=== PATIENT | male | born 1935 | race Caucasian/White ===

== ENCOUNTER 2022-12-15 15:59 | Emergency (ER) | payer MEDICARE, SELFPAY ==
[2022-12-15] VITALS (14 sets, daily range): BP systolic 135–168; BP diastolic 75–126; PULSE 69–88; RESP 13–22; O2SAT 95–100
--- NOTE | ~2022-12-15 | CT_ITS ---
EXAMINATION: CT abd pelvis lumbar w con DATE: 12/15/2022 21:26 INDICATION: lower abd pain, R groin pain, L low back pain TECHNIQUE: Computed tomography (CT) of the abdomen and pelvis and lumbar spine was performed without intravenous contrast. Automated exposure control and iterative reconstruction technique were employed . The dose-length product was 2179.53 mGy-cm. COMPARISON: None. FINDINGS: Motion artifact present in the upper portions of the scan. Abdomen and pelvis: Lower thorax: Cardiomegaly. Pulmonary arterial dilation as can be seen with pulmonary arterial hypert ension. Coronary artery calcification and likely coronary stents. Senescent changes in the lungs. Con siderable motion artifact in the lung bases. Liver: Normal. Biliary/Gallbladder: Cholelithiasis. No bile duct dilation. Pancreas: Mild atrophy Spleen: Normal. Adrenals:No mass. Kidneys: Bilateral cortical atrophy. Multiple bilateral renal cysts. Bilateral pelviectasis. Mild uro thelial enhancement. GI tract: Distal esophageal and gastric wall edema. No small or large bowel dilation. Normal appendix . Mesentery/Peritoneum: No ascites, mass, or free air. Retroperitoneum: No mass. Heavy atherosclerotic calcifications. Aortic stent graft. Hyperdensities wi thin the thrombosed aneurysmal sac seen near the proximal portion of the graft, laterally, near the t akeoff of the iliac stents, and posteriorly adjacent to the lumbar arteries. Thrombosis of the left i liac limb with reconstitution at the left iliac bifurcation. Thrombosed right internal iliac artery. Patent femorofemoral graft. Pelvis: Partially filled urinary bladder with mild wall thickening. Prostatomegaly with calcification . Soft Tissues: Soft tissues and body wall unremarkable. Bones (excluding spine): No acute osseous finding. Lumbar Spine: Lumbar scoliosis. 5 nonrib-bearing lumbar-type vertebral bodies. Pedicles intact. Normal vertebral gloria dy alignment. Vertebral body heights preserved. Multilevel severe degenerative disc disease. Multilev el severe facet arthropathy. Multilevel severe bilateral neural foraminal narrowing. Severe central c anal narrowing at L3-4. No fracture. IMPRESSION: 1. 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 Consider vascular consultation. 2. Thrombosis of the left iliac stent, with distal reconstitution at the left iliac bifurcation. Righ t internal iliac thrombosis. 3. Bilateral renal pelviectasis with urothelial enhancement may represent ascending infection in the appropriate clinical context. 4. Esophagitis/gastritis. 5. No acute fracture or traumatic malalignment detected in the lumbar spine. Reviewed, dictated and finalized at location K. IMPRESSION: 1. 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 Consider vascul ar consultation. 2. Thrombosis of the left iliac stent, with distal reconstitution at the left i liac bifurcation. Right internal iliac thrombosis. 3. Bilateral renal pelviectasis with urothelial enhancement may represent ascen ding infection in the appropriate clinical context. 4. Esophagitis/gastritis. 5. No acute fracture or traumatic malalignment detected in the lumbar spine.
--- NOTE | ~2022-12-15 | CT_ITS ---
EXAMINATION: CT brain wo con DATE: 12/15/2022 21:10 INDICATION: fall yesterday, [place] . TECHNIQUE: Computed tomography (CT) of the head was performed without intravenous contrast. The mA wa s adjusted according to patient size. Iterative reconstruction technique was employed. The dose-lengt h product was 681.00 mGy-cm. COMPARISON: None. FINDINGS: No acute intracranial hemorrhage or extra-axial fluid collection. No hydrocephalus, mass, or herniation. No acute ischemic infarct. Unremarkable dural venous sinus attenuation. No acute osseous abnormality. The aerated spaces are clear. Moderate atrophy and chronic white matter change. Old left occipital infarct. Atherosclerotic intracr anial calcification. Bilateral lens replacements. IMPRESSION: No acute intracranial process. Reviewed, dictated and finalized at location K.
--- NOTE | ~2022-12-15 | CT_ITS ---
EXAMINATION: CT cervical spine wo con DATE: 12/15/2022 21:13 INDICATION: fall yesterday, [place] TECHNIQUE: Computed tomography (CT) of the cervical spine was performed without intravenous contrast. Automated exposure control and iterative reconstruction technique were employed. The dose-length pro duct was 469.16 mGy-cm. COMPARISON: None. FINDINGS: Vertebral Body Alignment: Intact. Reversed lordosis centered at C5-6. Craniocervical and atlantoaxial alignment: Moderate degenerative change. Alignment intact. Osseous structures/fracture: No evidence of a lytic or blastic process in the visualized spine. No e vidence of acute fracture. . Cervical soft tissues: The paraspinal soft tissues planes are maintained. Extensive atherosclerotic c alcifications. Biapical pleural scarring. Patulous esophagus. Degenerative changes: Multilevel disc calcifications. Multilevel degenerative disc disease and facet arthropathy. Multilevel moderate neural foraminal narrowing. No severe central canal narrowing. 4 mm central disc protrusion and left paracentral osteophyte complex contribute to moderate central canal narrowing at C5-6. IMPRESSION: No acute fracture or traumatic malalignment in the cervical spine. Reviewed, dictated and finalized at location K.
--- NOTE | 2022-12-15 20:18 | ECG_ITS ---
Measurements Intervals [place] Rate: 70 P: [place]: 0 QRS: -18 QRSD: 92 T: 14 QT: 407 QTc: 439 Interpretive Statements ATRIAL FIBRILLATION VENTRICULAR PREMATURE COMPLEX BASELINE ARTIFACT- II, III, AVR, AVF, V1 ABNORMAL ECG NO PREVIOUS ECG AVAILABLE FOR COMPARISON Electronically Signed On 12-16-2022 6:46:22 CDT by Jagdeep Sumner D.O.
[2022-12-15 20:44] LABS: Basophils Percent Auto 0.2 % (0.2-1.2); Eosinophils Absolute Auto 0.2 K/mm3 (0-0.3); Eosinophils Percent Auto 3.8 % (0-4.4); Hematocrit 38.8 % (42.0-52.0); Immature Granulocyte Absolute 0.02 K/mm3 (0.00-0.031); Immature Granulocyte Percent A 0.5 % (0-0.5); Immature Platelet Fraction Pct 4.5 % (0.9-11.2); Lymphocytes Absolute Auto 0.91 K/mm3 (0.9-3.2); Lymphocytes Percent Auto 21.6 % (18.3-44.2); Mean Corpuscular HGB Conc 33.5 g/dl (32-36); Mean Corpuscular Hemoglobin 32.7 pg (26-34); Mean Corpuscular Volume 97.7 fl (80-100); Mean Platelet Volume 10.5 fl (7.4-10.4); Monocytes Absolute Auto 0.4 K/mm3 (0.1-0.6); Monocytes Percent Auto 10.2 % (2.6-8.5); Neutrophils Absolute Auto 2.7 K/mm3 (1.3-6.7); Neutrophils Percent Auto 63.7 % (45.5-73.1); Platelet Count Result 133 k/mm3 (150-375); Red Blood Count 3.97 M/mm3 (4.6-6.20); Red Cell Distribution Width 14.1 % (11.5-14.5); White Blood Count 4.2 K/mm3 (4.5-10.0)
[2022-12-15 20:54] LABS: Alanine Aminotransferase 31 U/L (6-50); Albumin Level 3.6 g/dL (3.5-5.1); Alkaline Phosphatase 69 U/L (38-126); Anion Gap 6 mmol/L (8-16); Aspartate Amino Transferase 31 U/L (17-59); Blood Urea Nitrogen 27 mg/dL (9-20); Calcium 8.9 mg/dL (8.4-10.2); Carbon Dioxide 28 mmol/L (22-30); Chloride 104 mmol/L (98-107); Estimated Glomerular Filt Rate 57; Glucose 141 mg/dL (65-110); Potassium 4.5 mmol/L (3.4-5.0); Sodium 138 mmol/L (137-145)
[2022-12-15 21:05] LABS: Troponin I < 0.012 ng/mL (0.000-0.034)
--- NOTE | 2022-12-15 21:29 | ED.BACK ---
HPI - Back Pain/Injury General Chief Complaint: Back Pain/Injury <NATHAN Torres Last Filed: 12/16/22 04:26> Stated Complaint: fell 24 hrs ago. Back pain <NATHAN Torres Last Filed: 12/16/22 04:26> Time Seen by Provider: 12/15/22 18:36 <NATHAN Torres Last Filed: 12/16/22 04:26> Source: patient and family <NATHAN Torres Last Filed: 12/16/22 04:26> Mode of arrival: ambulatory <NATHAN Torres Last Filed: 12/16/22 04:26> Limitations: dementia <NATHAN Torres Last Filed: 12/16/22 04:26> History of Present Illness HPI Narrative: Patient is an 87-year-old male who presents to the ED with his daughter with report of a fall and low back pain. Patient has a history of dementia and resides at [facility]. History somewhat limited due to patient's dementia. Daughter reports patient had a witnessed fall yesterday morning in which he was walking with his walker and lost his balance, falling backwards onto his bottom. Nursing staff did not comment on a head injury, but patient does report he hit his head. He denied any LOC. He c/o pain to his left lower back, lower abdomen, and R groin. He denies any dizziness, lightheadedness, vision changes, nausea, vomiting, chest pain, difficulty breathing, numbness, saddle anesthesia, incontinence of bowel or bladder. <NATHAN Torres Last Filed: 12/16/22 04:26> Related Data Allergies/Adverse Reactions: Allergies Allergy/AdvReac Type Severity Reaction Status Date / Time No Known Allergies Allergy Verified 12/15/22 16:04 <NATHAN Torres Last Filed: 12/16/22 04:26> Review of Systems Review of Systems: CONSTITUTIONAL: Denies fever, chills, or sweats. EYES: Denies visual changes. CARDIOVASCULAR: Denies chest pain. RESPIRATORY: Denies dyspnea. GASTROINTESTINAL: See HPI. GENITOURINARY: Denies dysuria or hematuria. MUSCULOSKELETAL: See HPI. NEUROLOGIC: See HPI. <Joyce Sims PA-C - Last Filed: 12/16/22 04:26> All systems reviewed & are unremarkable except as noted in HPI and below <Joyce Sims PA-C - Last Filed: 12/16/22 04:26> PMFSH Past Medical History Medical History: Medical History (Updated 12/16/22 @ 00:02 by Joyce Sims PA-C) Atrial fibrillation Coronary artery disease Dementia Diabetes mellitus Hypercholesterolemia <Joyce Sims PA-C - Last Filed: 12/16/22 04:26> Surgical History Surgical History: Surgical History (Updated 12/15/22 @ 23:08 by Joyce Sims PA-C) History of aortic aneurysm repair S/P insertion of iliac artery stent <Joyce Sims PA-C - Last Filed: 12/16/22 04:26> Social History Social History: Social History (Updated 12/15/22 @ 23:08 by Joyce Sims PA-C) [facility] <Joyce Sims PA-C - Last Filed: 12/16/22 04:26> Exam Narrative: GENERAL: Elderly, well-nourished, non-toxic, in no acute distress. HEAD: Normocephalic, atraumatic. NECK: Supple. No adenopathy, no masses. No midline spinal tenderness. RESPIRATORY: Airway patent, respirations nonlabored. Clear to auscultation bilaterally, no rales, rhonchi, wheezing. CARDIOVASCULAR: Regular rate and rhythm without murmurs, rubs, or gallops. Peripheral pulses 2+ and equal bilaterally. ABDOMINAL: Soft, mild tenderness throughout lower abdomen, no focal tenderness. Nondistended, no hepatosplenomegaly. Normoactive BS. MUSCULOSKELETAL: Moves all extremities. Strength/ROM intact without gross deformities. No midline thoracic or lumbar spinal tenderness. No significant appreciable tenderness in lumbosacral region, but difficult exam d/t lack of patient cooperation/dementia. SKIN: Warm, dry, normal color. No rashes. Erythema, satellite lesions, skin irritation and breakdown to right inguinal region, consistent with Georgie. NEURO: Alert, confused,
[2022-12-15 22:54] LABS: INR 1.5; Prothrombin Time 17.2 Seconds (11.1-14.7)
[2022-12-15 22:55] LABS: Partial Thromboplastin Time 33.9 SECONDS (22.3-36.8)
[2022-12-15 23:08] LABS: Appearance Urine Clear (Clear); Bilirubin Urine Negative (Negative); Blood Urine Negative (Negative); Color Urine Yellow (Yellow); Glucose Urine UA Negative (Negative); Ketones Urine Negative (Negative); Leukocyte Esterase Ur Negative LEU/UL (Negative); Nitrate Urine Negative (Negative); Protein Urine Negative (Negative)
[2022-12-15 23:09] LABS: Specific Grav Ur 1.037 (1.001-1.035)
[2022-12-15 23:10] LABS: Add Urine Microscopic? NO
--- NOTE | 2022-12-16 00:16 | PC.NURSE ---
called [facility] to request transport. ETA [id number]
[2022-12-16 00:17] LABS: Glucose Point of Care 113 mg/dl (65-105)
--- NOTE | 2022-12-16 00:47 | PC.NURSE ---
[facility] here.
[2022-12-16 00:49] VITALS: BP 155/104
[2022-12-16 01:02] VITALS: PULSE 66; RESP 18; TEMP 36.7; O2SAT 97
== END 2022-12-16 01:05 ==
PROVIDERS: Emergency Provider Physician Assistant
DX: S39.012A Strain of muscle, fascia and tendon of lower back, initial encounter (principal); B37.2 Candidiasis of skin and nail; F03.90 Unspecified dementia, unspecified severity, without behavioral disturbance, psychotic disturbance, mood disturbance, and anxiety; T82.868A Thrombosis due to vascular prosthetic devices, implants and grafts, initial encounter; I82.521 Chronic embolism and thrombosis of right iliac vein; I48.91 Unspecified atrial fibrillation; I25.10 Atherosclerotic heart disease of native coronary artery without angina pectoris; E11.9 Type 2 diabetes mellitus without complications; E78.00 Pure hypercholesterolemia, unspecified; I49.3 Ventricular premature depolarization; K20.90 Esophagitis, unspecified without bleeding; K29.70 Gastritis, unspecified, without bleeding; R93.422 Abnormal radiologic findings on diagnostic imaging of left kidney; R93.421 Abnormal radiologic findings on diagnostic imaging of right kidney; W18.39XA Other fall on same level, initial encounter; Y71.2 Prosthetic and other implants, materials and accessory cardiovascular devices associated with adverse incidents
CPT/HCPCS: 36415; 70450; 72125; 72132; 74177; 80053; 81003; 82948; 84484; 85025; 85055; 85610; 85730; 93005; 99284; Q9967

== ENCOUNTER 2023-01-14 10:23 | Observation (INO) | payer MEDICARE, SELFPAY ==
[2023-01-14] VITALS (28 sets, daily range): BP systolic 122–178; BP diastolic 65–95; PULSE 60–95; RESP 13–26; TEMP 36.5–36.9; O2SAT 96–100
--- NOTE | ~2023-01-14 | XR_ITS ---
Portable chest x-ray Comparison: None Clinical History: Weakness Findings: Lungs are clear, without focal consolidation or pleural effusion. Cardiomediastinal silho uette is mildly prominent, status post CABG. Bones and soft tissues are unremarkable. Impression: Clear lungs. Status post CABG. Reviewed, dictated and finalized at location . Impression: Clear lungs. Status post CABG.
--- NOTE | ~2023-01-14 | CT_ITS ---
EXAMINATION: CT brain wo con DATE: 01/14/2023 15:11 INDICATION: Leg weakness. TECHNIQUE: Computed tomography (CT) of the head was performed without intravenous contrast. The dose- length product was 681.00 mGy-cm. Automated exposure control and iterative reconstruction technique w ere employed. COMPARISON: CT dated 12/15/2022 FINDINGS: Generalized atrophy. There is chronic left occipital lobe infarction with encephalomalacia. There is intracranial atherosclerosis. There is compensatory dilation of the ventricles. There are s cattered mild periventricular and subcortical white matter changes, most likely related to small vess el ischemic disease (microangiopathy). There is mucosal thickening of the maxillary, ethmoid and sphe noid sinuses. Mastoids are pneumatized. No depressed skull fractures. Small chronic left cerebellar i nfarction. IMPRESSION: 1. No acute intracranial abnormality. 2: Moderate sinus disease. 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 4: Chronic age-related findings. Reviewed, dictated and finalized at location A.
--- NOTE | 2023-01-14 10:28 | ECG_ITS ---
Measurements Intervals [place] Rate: 66 P: [place]: 0 QRS: -22 QRSD: 90 T: 18 QT: 397 QTc: 417 Interpretive Statements ATRIAL FIBRILLATION BORDERLINE LEFT AXIS DEVIATION [QRS AXIS < -20] ABNORMAL RHYTHM ECG COMPARED TO ECG 12/15/2022 21:32:04 NO SIGNIFICANT CHANGES Electronically Signed On 01-14-2023 15:55:55 CDT by Talat Tomlinson M.D.
[2023-01-14 10:53] LABS: Basophils Percent Auto 0.3 % (0.2-1.2); Eosinophils Absolute Auto 0.1 K/mm3 (0-0.3); Hematocrit 37.8 % (42.0-52.0); Hemoglobin 12.4 g/dL (14.0-18.0); Immature Granulocyte Absolute 0.01 K/mm3 (0.00-0.031); Immature Granulocyte Percent A 0.2 % (0-0.5); Immature Platelet Fraction Pct 4.9 % (0.9-11.2); Lymphocytes Absolute Auto 0.58 K/mm3 (0.9-3.2); Lymphocytes Percent Auto 9.7 % (18.3-44.2); Mean Corpuscular HGB Conc 32.8 g/dl (32-36); Mean Corpuscular Hemoglobin 32.8 pg (26-34); Mean Platelet Volume 10.4 fl (7.4-10.4); Monocytes Absolute Auto 0.6 K/mm3 (0.1-0.6); Monocytes Percent Auto 10.2 % (2.6-8.5); Neutrophils Absolute Auto 4.7 K/mm3 (1.3-6.7); Neutrophils Percent Auto 77.6 % (45.5-73.1); Platelet Count Result 142 k/mm3 (150-375); Red Blood Count 3.78 M/mm3 (4.6-6.20); Red Cell Distribution Width 13.9 % (11.5-14.5)
[2023-01-14 11:05] LABS: Alanine Aminotransferase 23 U/L (6-50); Albumin Level 3.4 g/dL (3.5-5.1); Alkaline Phosphatase 56 U/L (38-126); Anion Gap 3 mmol/L (8-16); Aspartate Amino Transferase 20 U/L (17-59); Bilirubin,Total 1.4 mg/dL (0.2-1.3); Blood Urea Nitrogen 23 mg/dL (9-20); Calcium 8.7 mg/dL (8.4-10.2); Carbon Dioxide 30 mmol/L (22-30); Chloride 105 mmol/L (98-107); Estimated CRCL calculation 42 ml/min; Estimated Glomerular Filt Rate > 60; Glucose 175 mg/dL (65-110); Potassium 3.8 mmol/L (3.4-5.0); Sodium 138 mmol/L (137-145)
[2023-01-14 11:26] LABS: Appearance Urine Clear (Clear); Bilirubin Urine Negative (Negative); Blood Urine Negative (Negative); Color Urine Dark Yellow (Yellow); Glucose Urine UA Negative (Negative); Ketones Urine Negative (Negative); Leukocyte Esterase Ur Negative LEU/UL (Negative); Nitrate Urine Negative (Negative); Protein Urine Negative (Negative); Specific Grav Ur 1.019 (1.001-1.035)
[2023-01-14 11:28] LABS: Add Urine Microscopic? NO
--- NOTE | 2023-01-14 12:13 | ED.WEAKNESS ---
HPI - Weakness General Chief complaint: Weakness Stated complaint: weakness Time Seen by Provider: 01/14/23 10:27 History of Present Illness HPI Narrative: Patient is an 87-year-old male who presents ER from his memory care for decreased ambulation. Patient typically walks with a walker but over the last 2 days has not been able to stand up and walk at all. He has difficulty with any sort of transitioning. Patient is oriented x1 and cannot provide history. Related Data Allergies Allergy/AdvReac Type Severity Reaction Status Date / Time No Known Allergies Allergy Verified 12/15/22 16:04 Review of Systems Review of Systems: ROS unobtainable: Yes unobtainable due to mental status PMFSH Past Medical History Medical History (Updated 01/14/23 @ 18:41 by Wu Drake MD) Atrial fibrillation Coronary artery disease Dementia Hypercholesterolemia Hypertension Insulin dependent diabetes mellitus Lumbar radiculopathy Spinal stenosis Surgical History Surgical History (Updated 01/14/23 @ 17:14 by Mona Reyes PA-C) History of aortic aneurysm repair Status post insertion of iliac artery stent Family History Family History (Updated 01/14/23 @ 17:15 by Mona Reyes PA-C) Other Family history unknown Social History Social History (Updated 01/14/23 @ 17:16 by Mona Reyes PA-C) Social History: 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 Code status: Do not resuscitate. Additional living arrangements comments: Assisted living at [facility]. Exam Narrative: GENERAL: Chronically ill-appearing, well-nourished, and in no acute distress. HEAD: Normocephalic, atraumatic. EYES: PERRL and EOMI. ENT: Mucous membranes moist. CHEST: Clear to auscultation. No respiratory distress. HEART: Regular rate and rhythm. Normal peripheral pulses. ABDOMEN: Soft, nontender, nondistended. EXTREMITIES: Normal range of motion. No edema. Unable to ambulate and has shaky legs when trying to stand. SKIN: Warm, dry, no rash. NEURO: Alert and oriented x1. PSYCH: Normal mood and affect. Course Course Emergency Course: Unremarkable lab work but patient cannot ambulate. May have suffered a stroke so will admit to hospital service. Vital Signs Vital signs: Vital Signs Temperature 98.4 F 01/14/23 10:17 Pulse Rate 94 01/14/23 10:17 Respiratory Rate 17 01/14/23 10:17 Blood Pressure 141/65 H 01/14/23 10:17 Pulse Oximetry 98 01/14/23 10:17 Temperature 98.4 F 01/14/23 10:17 Pulse Rate 63 01/14/23 12:45 Respiratory Rate 20 01/14/23 12:45 Blood Pressure 167/88 H 01/14/23 12:31 Pulse Oximetry 99 01/14/23 11:46 MDM - Weakness Lab Data 01/14/23 10:42 01/14/23 10:42 Labs: Lab Results 01/14/23 01/14/23 01/14/23 Range/Units 10:42 10:42 11:09 WBC 6.0 (4.5-10.0) K/mm3 RBC 3.78 L (4.6-6.20) M/mm3 Hgb 12.4 L (14.0-18.0) g/dL Hct 37.8 L (42.0-52.0) % MCV 100.0 (80-100) fl MCH 32.8 (26-34) pg MCHC 32.8 (32-36) g/dl RDW 13.9 (11.5-14.5) % Plt Count 142 L (150-375) k/mm3 MPV 10.4 (7.4-10.4) fl Immature Gran % (Auto) 0.2 (0-0.5) % Neut % (Auto) 77.6 H (45.5-73.1) % Lymph % (Auto) 9.7 L (18.3-44.2) % Hardin % (Auto) 10.2 H (2.6-8.5) % Eos % (Auto) 2.0 (0-4.4) % Baso % (Auto) 0.3 (0.2-1.2) % Lymph # (Auto) 0.58 L (0.9-3.2) K/mm3 Hardin # (Auto) 0.6 (0.1-0.6) K/mm3 Eos # (Auto) 0.1 (0-0.3) K/mm3 Baso # (Auto) 0.0 (0.0-0.1) K/mm3 Abs Immat Gran (auto) 0.01 (0.00-0.031) K/mm3 Absolute Neuts (auto) 4.7 (1.3-6.7) K/mm3 Absolute Nucleated RBC 0.0 (0.0-0.012) K/mm3 Nucleated RBC % 0.0 (0.0-0.2) % % Immature Plt Fraction 4.9 (0.9-11.2) % Sodium 138 (137-145) mmol/L Potassium 3.8 (3.4-5.0) mmol/L Chloride 105 (98-107) mmol/L Carbon Dioxide 30 (22-30) mmol/L Anion Gap 3 L (8-16) mmo
[2023-01-14 14:42] LABS: Strep Group A RT-PCR NOT DETECTED (Negative)
[2023-01-14 14:48] LABS: Influenza A QL RT-PCR Negative (Negative); Influenza B QL RT-PCR Negative (Negative); SARS-CoV-2 RNA PCR Negative
--- NOTE | 2023-01-14 18:00 | PM.IMHP ---
H&P: HPI History of Present Illness Date/Time: 01/14/23 18:00 Chief Complaint: Weakness. Narrative: This is an 87-year-old male with dementia, insulin-dependent diabetes, hypertension, coronary artery disease, paroxysmal atrial fibrillation, and other comorbidities who presented to the emergency department via EMS from [facility] for evaluation of weakness. The patient is an unreliable historian and thus the following history is obtained via a review of his electronic medical records as well as discussions with his son Darrion who is at bedside. The patient has his own apartment at the assisted living facility and he typically gets around well with a Rollator. He is able to get himself down to the dining room and seems to do well. Over the last several days however he has had sinus and chest congestion and has been more fatigued and weak than usual. Staff at the assisted living facility sent him in today as he is requiring more care than what they can provide. The patient self has no complaints but he has pretty significant short-term memory loss. He was afebrile on arrival to the emergency department with stable vital signs. Pertinent labs include a WBC count of 6.0, hemoglobin 12.4 which is stable, normal electrolytes, BUN 23, creatinine 1.00, glucose 175. He tested negative for influenza, COVID, and group B strep. Brain CT showed no acute intracranial finding and moderate sinus disease. His chest x-ray was clear. He was unable to ambulate well in the emergency department even with a 2 person assist and he is being admitted in this setting. At the time my evaluation he has no complaints. Review of Systems Review of Systems: Unable to obtain given his severe short-term memory loss. [facility] Past Medical History Medical History Atrial fibrillation Coronary artery disease Dementia Hypercholesterolemia Hypertension Insulin dependent diabetes mellitus Lumbar radiculopathy Spinal stenosis Surgical History Surgical History (Updated 01/14/23 @ 17:14 by Mona Reyes PA-C) History of aortic aneurysm repair Status post insertion of iliac artery stent Family History Family History (Updated 01/14/23 @ 17:15 by Mona Reyes PA-C) Other Family history unknown Social History Social History (Updated 01/14/23 @ 22:07 by Mona Reyes PA-C) Social History: Healthcare power of nanotechnology 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 Code status: Do not resuscitate. Smoking status: Never smoker Alcohol intake: never Substance use: never Additional living arrangements comments: Assisted living at [facility]. 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 Meds Home Medications and Allergies Home Medications Medication Instructions Recorded Confirmed Type clotrimazole 1 % topical cream 1 applic topical BID #30 grams 12/16/22 01/14/23 Rx aspirin 81 mg tablet,delayed 81 mg PO DAILY 01/14/23 01/14/23 History release atorvastatin 20 mg tablet 20 mg PO DAILY 01/14/23 01/14/23 History cholecalciferol (vitamin D3) 50 50 mcg PO DAILY 01/14/23 01/14/23 History mcg (2,000 unit) tablet clopidogrel 75 mg tablet 75 mg PO DAILY 01/14/23 01/14/23 History donepezil 10 mg tablet 10 mg PO HS 01/14/23 01/14/23 History fenofibrate nanocrystallized 145 145 mg PO DAILY 01/14/23 01/14/23 History mg tablet finasteride 5 mg tablet 5 mg PO DAILY 01/14/23 01/14/23 History guaifenesin 600 mg tablet, 600 mg PO BID 01/14/23 01/14/23 History extended release 12 hr (Mucus Relief ER) insulin aspart U-100 100 unit/mL 3 unit subcut TIDWMEAL 01/14/23 01/14/23 History (3 mL) subcutaneous pen (Novolog FlexPen U-100 Insulin aspart) insulin glargine 100 unit/mL (3 5 unit subcut DAILY 01/14/23 01/14/23 History mL) subcutaneous pen (Basaglar KwikPen U-100 Insulin) lisinopril 5 mg tablet 5 mg PO DAILY 01/14/23 01/14/23 History memantine 1
--- NOTE | 2023-01-14 18:56 | PC.NURSE ---
This patient, Nguyễn Lamb, was admitted to 2 Medical Room 242-. Patient/family oriented to hospital policies and general routines including ID bracelet, bed and alarms, visiting hours, pain management, procedures, bathroom and other care routines, personal items, smoking policy, room service/diet, and visiting hours. Information on how to activate the Rapid Response Team has been discussed. Patient/Family are encouraged to report perceived risks to care and to ask questions if they do not understand what they are told or what they should do.
[2023-01-14 23:27] LABS: Hemoglobin A1C 6.3 % (<5.7)
[2023-01-15] MEDS: LACTATED RINGERS 1,000 ML 100 ML IV CONT (00:30)
[2023-01-15 05:42] LABS: Hematocrit 36.5 % (42.0-52.0); Hemoglobin 12.3 g/dL (14.0-18.0); Immature Platelet Fraction Pct 4.9 % (0.9-11.2); Mean Corpuscular HGB Conc 33.7 g/dl (32-36); Mean Corpuscular Hemoglobin 33.2 pg (26-34); Mean Corpuscular Volume 98.4 fl (80-100); Mean Platelet Volume 10.3 fl (7.4-10.4); Platelet Count Result 137 k/mm3 (150-375); Red Blood Count 3.71 M/mm3 (4.6-6.20); Red Cell Distribution Width 13.6 % (11.5-14.5)
[2023-01-15 05:54] LABS: Anion Gap 4 mmol/L (8-16); Blood Urea Nitrogen 21 mg/dL (9-20); Calcium 8.4 mg/dL (8.4-10.2); Carbon Dioxide 28 mmol/L (22-30); Chloride 105 mmol/L (98-107); Estimated CRCL calculation 52 ml/min; Estimated Glomerular Filt Rate > 60; Glucose 97 mg/dL (65-110); Magnesium 1.5 mg/dL (1.6-2.3); Potassium 4.1 mmol/L (3.4-5.0); Sodium 137 mmol/L (137-145)
[2023-01-15 06:00] VITALS: BP 109/74; PULSE 73; RESP 20; TEMP 36.3; O2SAT 98
[2023-01-15 06:31] LABS: Thyroid Stimulating Hormone Reflex 0.378 uIU/mL (0.465-4.68)
[2023-01-15 07:25] LABS: Free T4 Free Thyroxine Reflex 2.11 ng/dL (0.78-2.19)
--- NOTE | 2023-01-15 08:40 | PM.IMPN ---
Progress Note: A&P Assessment and Plan (1) Upper respiratory infection: Code(s): J06.9 - Acute upper respiratory infection, unspecified Status: Acute Assessment and Plan: Negative for influenza, COVID, and strep group A strep, chest x-ray was clear, likely has a viral URI CT shows sinus disease and he is tender to palpation over the maxillary sinuses She started on Augmentin 01/14, continue Mucinex (2) Sinusitis: Code(s): J32.9 - Chronic sinusitis, unspecified Status: Acute Assessment and Plan: Augmentin as above (3) Generalized weakness: Code(s): R53.1 - Weakness Status: Acute Assessment and Plan: Unsure of etiology, PT/OT consult pending Check TSH/B12/folate/Vitamin D (4) Insulin dependent diabetes mellitus: Status: Acute Assessment and Plan: Continue basal insulin. Initiate sliding scale insulin, Accu-Cheks, and hypoglycemic protocol. A1c 6.3 Blood glucose reviewed 01/15 (5) Atrial fibrillation: Code(s): I48.91 - Unspecified atrial fibrillation Status: Acute Assessment and Plan: He is rate controlled on metoprolol. Not on chronic anticoagulation, likely due to fall risk. (6) Dementia: Qualifiers: Dementia behavioral or psychological symptom: unspecified whether behavioral, psychotic, or mood disturbance or anxiety Dementia severity: unspecified severity Dementia type: unspecified type Qualified Code(s): F03.90 - Unspecified dementia, unspecified severity, without behavioral disturbance, psychotic disturbance, mood disturbance, and anxiety Code(s): F03.90 - Unspecified dementia, unspecified severity, without behavioral disturbance, psychotic disturbance, mood disturbance, and anxiety Status: Acute Assessment and Plan: Continue donepezil and memantine. (7) Hypertension: Code(s): I10 - Essential (primary) hypertension Status: Acute Assessment and Plan: Blood pressures reviewed 01/15 Plan DVT prophylaxis with SCDs GI prophylaxis not indicated Code status DNR Subjective Date/time seen: 01/15/23 08:40 Interval history: 79-year-old male with dementia, diabetes, heart disease and AFib presenting from a nursing facility with weakness. No overnight events noted. No chest pain or shortness of breath. No nausea, vomiting or diarrhea. No fevers or chills. Review of Systems Review of Systems: 12 point review of systems was assessed and was negative except as noted in the HPI Exam Narrative: General: No acute distress, alert and oriented per baseline per chart HEENT: Atraumatic, normocephalic, mucous membranes moist CV: Irregularly irregular, S1, S2 Lungs: Clear to auscultation bilaterally, no rales or crackles noted, no wheezes, good air entry Abdomen: Soft, nontender, nondistended Extremities: Normal to inspection Skin: No rashes noted, no lesions or wounds seen Psych: Unable to assess, confused Objective Data Vital Signs Vital Signs: Vital Signs - 24 hr 01/14/23 10:17 01/14/23 10:27 01/14/23 10:28 Temperature 98.4 F Pulse Rate 94 Respiratory Rate 17 13 20 Blood Pressure 141/65 H 141/65 H Pulse Oximetry 98 98 Oxygen Delivery 01/14/23 10:30 01/14/23 10:34 01/14/23 10:35 Temperature Pulse Rate 67 Respiratory Rate 19 16 20 Blood Pressure 133/68 Pulse Oximetry 97 100 100 Oxygen Delivery 01/14/23 10:45 01/14/23 10:46 01/14/23 11:00 Temperature Pulse Rate 73 77 65 Respiratory Rate 18 18 16 Blood Pressure 127/76 Pulse Oximetry 98 96 100 Oxygen Delivery 01/14/23 11:01 01/14/23 11:15 01/14/23 11:17 Temperature Pulse Rate 68 60 65 Respiratory Rate 21 H 15 26 H Blood Pressure 145/74 H 134/81 Pulse Oximetry 99 99 Oxygen Delivery 01/14/23 11:30 01/14/23 11:31 01/14/23 11:32 Temperature Pulse Rate 63 62 61 Respiratory Rate 16 15 17 Blood Pressure 1
--- NOTE | 2023-01-15 08:42 | PC.NURSE ---
Patient will not keep nurse monitoring on, patient pulled out IV access, patient constantly setting off bed alarm attempting to get up without help.
[2023-01-15 08:44] LABS: Glucose Point of Care 85 mg/dl (65-105)
[2023-01-15 08:50] LABS: Total Triiodothyronine (T3) 0.99 NG/ML (0.97-1.69)
[2023-01-15 11:26] VITALS: BMI 25.4
--- NOTE | 2023-01-15 11:30 | PCPTNOTE ---
Attempted to evaluate patient, is asleep and does not want to be woken up. Will try again when he is more awake.
--- NOTE | 2023-01-15 11:33 | PC.NURSE ---
RN tried to give patient medications this morning. Patient was drowsy and fell asleep. Therapy attempted to work with patient and patient told him to leave him alone. Patient fell back asleep. Patient not following commands or waking up enough to take medications.
[2023-01-15 12:25] LABS: Glucose Point of Care 90 mg/dl (65-105)
[2023-01-15 14:30] VITALS: BP 149/66; PULSE 110; RESP 18; TEMP 36.8; O2SAT 98
[2023-01-15 17:08] LABS: Vitamin D 25 Hydroxy 49.3 ng/mL
[2023-01-15] MEDS: MEMANTINE 10 MG TABLET PO (17:45)
[2023-01-15 17:52] LABS: Thyroid Stimulating Hormone 0.363 uIU/mL (0.465-4.680)
--- NOTE | 2023-01-15 17:58 | PC.NURSE ---
Patient more alert and awake for dinner. Able to follow commands. Able to swallow evening medications.
[2023-01-15 18:00] LABS: Glucose Point of Care 92 mg/dl (65-105)
[2023-01-15 20:05] VITALS: BP 172/54; PULSE 61; RESP 18; TEMP 35.8; O2SAT 99
[2023-01-15 21:08] VITALS: PULSE 61
[2023-01-15] MEDS: guaiFENesin 12 HR 600 MG TABCR PO (21:08)
[2023-01-15] MEDS: AMOXICILLIN/CLAVULANATE K 875-125 MG TAB 1 TABLET PO (21:08)
[2023-01-15] MEDS: DONEPEZIL HCL 10 MG TABLET PO (21:08)
[2023-01-15] MEDS: MICONAZOLE NITRATE 2% CREAM 30 GM TUBE 1 APPLIC TOPICAL (21:08)
[2023-01-15] MEDS: TAMSULOSIN HCL 0.4 MG CAPSULE PO (21:08)
[2023-01-15] MEDS: METOPROLOL TARTRATE 25 MG TABLET PO (21:08)
[2023-01-15] MEDS: MONTELUKAST SODIUM 10 MG TABLET PO (21:09)
[2023-01-16] VITALS (7 sets, daily range): BP systolic 100–152; BP diastolic 54–79; PULSE 73–89; RESP 17–20; TEMP 36.3–36.7; O2SAT 98–99
[2023-01-16 06:25] LABS: Basophils Percent Auto 0.2 % (0.2-1.2); Eosinophils Absolute Auto 0.1 K/mm3 (0-0.3); Hematocrit 35.4 % (42.0-52.0); Hemoglobin 11.9 g/dL (14.0-18.0); Immature Granulocyte Absolute 0.02 K/mm3 (0.00-0.031); Immature Granulocyte Percent A 0.3 % (0-0.5); Lymphocytes Absolute Auto 0.78 K/mm3 (0.9-3.2); Lymphocytes Percent Auto 13.2 % (18.3-44.2); Mean Corpuscular HGB Conc 33.6 g/dl (32-36); Mean Corpuscular Hemoglobin 31.8 pg (26-34); Mean Corpuscular Volume 94.7 fl (80-100); Mean Platelet Volume 10.2 fl (7.4-10.4); Monocytes Absolute Auto 0.8 K/mm3 (0.1-0.6); Monocytes Percent Auto 13.1 % (2.6-8.5); Neutrophils Absolute Auto 4.2 K/mm3 (1.3-6.7); Neutrophils Percent Auto 71.2 % (45.5-73.1); Platelet Count Result 130 k/mm3 (150-375); Red Blood Count 3.74 M/mm3 (4.6-6.20); Red Cell Distribution Width 13.2 % (11.5-14.5); White Blood Count 5.9 K/mm3 (4.5-10.0)
[2023-01-16 06:46] LABS: Alanine Aminotransferase 19 U/L (6-50); Albumin Level 3.2 g/dL (3.5-5.1); Alkaline Phosphatase 43 U/L (38-126); Anion Gap 5 mmol/L (8-16); Aspartate Amino Transferase 20 U/L (17-59); Bilirubin,Total 1.8 mg/dL (0.2-1.3); Blood Urea Nitrogen 19 mg/dL (9-20); Calcium 8.5 mg/dL (8.4-10.2); Carbon Dioxide 30 mmol/L (22-30); Chloride 102 mmol/L (98-107); Estimated CRCL calculation 52 ml/min; Estimated Glomerular Filt Rate > 60; Glucose 145 mg/dL (65-110); Potassium 3.9 mmol/L (3.4-5.0); Sodium 137 mmol/L (137-145)
[2023-01-16 08:21] LABS: Glucose Point of Care 136 mg/dl (65-105)
[2023-01-16] MEDS: AMOXICILLIN/CLAVULANATE K 875-125 MG TAB 1 TABLET PO ×2 (10:00→20:46)
[2023-01-16] MEDS: TOLTERODINE TARTRATE LA 4 MG CAP.ER.24H PO (10:00)
[2023-01-16] MEDS: guaiFENesin 12 HR 600 MG TABCR PO ×2 (10:00→20:46)
[2023-01-16] MEDS: MEMANTINE 10 MG TABLET PO (10:00)
[2023-01-16] MEDS: FINASTERIDE 5 MG TABLET PO (10:00)
[2023-01-16] MEDS: FENOFIBRATE NANOCRYSTALLIZED 145 MG TABLET PO (10:00)
[2023-01-16] MEDS: CLOPIDOGREL BISULFATE 75 MG TABLET PO (10:00)
[2023-01-16] MEDS: ATORVASTATIN 20 MG TABLET PO (10:00)
[2023-01-16] MEDS: ASPIRIN 81 MG ENTERIC TABLET PO (10:00)
[2023-01-16] MEDS: CYANOCOBALAMIN 1,000 MCG TABLET 1000 MCG PO (10:00)
[2023-01-16] MEDS: CHOLECALCIFEROL 1,000 UNITS TABLET 2000 UNITS PO (10:00)
[2023-01-16 12:06] LABS: Glucose Point of Care 308 mg/dl (65-105)
[2023-01-16] MEDS: INSULIN ASPART (*BKC) 100 UNITS/ML SUB-Q ×2 (12:12→12:13)
[2023-01-16] MEDS: MICONAZOLE NITRATE 2% CREAM 30 GM TUBE 1 APPLIC TOPICAL ×2 (12:17→20:46)
[2023-01-16 17:06] LABS: Glucose Point of Care 203 mg/dl (65-105)
--- NOTE | 2023-01-16 17:12 | PM.IMPN ---
Progress Note: A&P Assessment and Plan (1) Upper respiratory infection: Code(s): J06.9 - Acute upper respiratory infection, unspecified Status: Acute Assessment and Plan: Negative for influenza, COVID, and strep group A strep. CXR was clear Likely has a viral URI CT shows sinus disease and he was tender to palpation over the maxillary sinuses Started on Augmentin 01/14, continue Mucinex (2) Sinusitis: Code(s): J32.9 - Chronic sinusitis, unspecified Status: Acute Assessment and Plan: CT scan showing moderate sinus disease. Augmentin as above (3) Generalized weakness: Code(s): R53.1 - Weakness Status: Acute Assessment and Plan: Unsure of etiology. 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 TSH low at 0.38 but FT4 normal. B12 low end of normal at 254 so will replace. VitD okay. PT/OT consult. Replace B12. (4) Insulin dependent diabetes mellitus: Status: Acute Assessment and Plan: A1c 6.3. The patient's blood glucose was reviewed on 01/16 Glucose flutuates widely. Continue AccuCheks covering with sliding scale. Hypoglycemia protocol available as needed. Continue current medications. (5) Atrial fibrillation: Code(s): I48.91 - Unspecified atrial fibrillation Status: Acute Assessment and Plan: Heart rate controlled on metoprolol. Not on chronic anticoagulation, likely due to fall risk. (6) Dementia: Qualifiers: Dementia behavioral or psychological symptom: unspecified whether behavioral, psychotic, or mood disturbance or anxiety Dementia severity: unspecified severity Dementia type: unspecified type Qualified Code(s): F03.90 - Unspecified dementia, unspecified severity, without behavioral disturbance, psychotic disturbance, mood disturbance, and anxiety Code(s): F03.90 - Unspecified dementia, unspecified severity, without behavioral disturbance, psychotic disturbance, mood disturbance, and anxiety Status: Acute Assessment and Plan: Possibly vascular component. Continue donepezil and memantine. (7) Hypertension: Code(s): I10 - Essential (primary) hypertension Status: Acute Assessment and Plan: Patient's blood pressure was reviewed on 01/16 Blood pressure better controlled. Will continue current medications. Plan DVT prophylaxis with SCDs GI prophylaxis not indicated Code status DNR Subjective Date/time seen: 01/16/23 17:12 Interval history: 79-year-old male with dementia, diabetes, heart disease and AFib presenting from a nursing facility with weakness. Asleep but arouses easily. Mumbled speech at times. Becomes alert but confused. Review of Systems Review of Systems: ROS unobtainable: Yes unobtainable due to mental status Exam Narrative: AF 97.6 126/73 73 18 98% ra General: No acute distress HEENT: Atraumatic, normocephalic, mucous membranes moist CV: Irregularly irregular, S1, S2 Lungs: Clear to auscultation anteriorly Abdomen: Soft, nontender, nondistended Extremities: Normal to inspection and without edema Skin: No rashes noted, no lesions or wounds seen Psych: alert, confused Objective Data Vital Signs Vital Signs: Vital Signs - 24 hr 01/15/23 20:05 01/15/23 21:08 01/15/23 20:00 Temperature 96.5 F L Pulse Rate 61 61 Respiratory Rate 18 Blood Pressure 172/54 H Pulse Oximetry 99 Oxygen Delivery Room Air 01/16/23 03:53 01/16/23 09:07 01/16/23 10:06 Temperature 97.3 F L Pulse Rate 76 Respiratory Rate 18 Blood Pressure 152/76 H 100/54 L Pulse Oximetry 98 Oxygen Delivery Room Air 01/16/23 10:00 01/16/23 14:20 01/16/23 14:30 Temperature 97.6 F Pulse Rate 73 Respiratory Rate 18 Blood Pressure 126/73 Pulse Oximetry 98 98 Oxygen Delivery Room Air Room Air Intake/Output Intake/Output: Intake & Output 01/13/23 01/14/23 01/15/23
[2023-01-16 20:24] LABS: Glucose Point of Care 296 mg/dl (65-105)
[2023-01-16] MEDS: METOPROLOL TARTRATE 25 MG TABLET PO (20:46)
[2023-01-16] MEDS: TAMSULOSIN HCL 0.4 MG CAPSULE PO (20:46)
[2023-01-16] MEDS: MONTELUKAST SODIUM 10 MG TABLET PO (20:46)
[2023-01-16] MEDS: DONEPEZIL HCL 10 MG TABLET PO (20:46)
[2023-01-16 21:09] LABS: Glucose Point of Care 255 mg/dl (65-105)
[2023-01-17 04:00] VITALS: BP 108/70; PULSE 87; TEMP 36.6; O2SAT 97
[2023-01-17 05:31] LABS: Basophils Percent Auto 0.4 % (0.2-1.2); Eosinophils Absolute Auto 0.2 K/mm3 (0-0.3); Eosinophils Percent Auto 2.8 % (0-4.4); Hematocrit 36.9 % (42.0-52.0); Hemoglobin 12.8 g/dL (14.0-18.0); Immature Granulocyte Absolute 0.02 K/mm3 (0.00-0.031); Immature Granulocyte Percent A 0.4 % (0-0.5); Lymphocytes Absolute Auto 0.81 K/mm3 (0.9-3.2); Lymphocytes Percent Auto 15.2 % (18.3-44.2); Mean Corpuscular HGB Conc 34.7 g/dl (32-36); Mean Corpuscular Hemoglobin 32.5 pg (26-34); Mean Corpuscular Volume 93.7 fl (80-100); Monocytes Absolute Auto 0.7 K/mm3 (0.1-0.6); Monocytes Percent Auto 12.6 % (2.6-8.5); Neutrophils Absolute Auto 3.7 K/mm3 (1.3-6.7); Neutrophils Percent Auto 68.6 % (45.5-73.1); Platelet Count Result 142 k/mm3 (150-375); Red Blood Count 3.94 M/mm3 (4.6-6.20); Red Cell Distribution Width 13.2 % (11.5-14.5); White Blood Count 5.3 K/mm3 (4.5-10.0)
[2023-01-17 05:43] LABS: Alanine Aminotransferase 19 U/L (6-50); Albumin Level 3.1 g/dL (3.5-5.1); Alkaline Phosphatase 66 U/L (38-126); Anion Gap 2 mmol/L (8-16); Aspartate Amino Transferase 18 U/L (17-59); Bilirubin,Total 1.5 mg/dL (0.2-1.3); Blood Urea Nitrogen 22 mg/dL (9-20); Calcium 8.4 mg/dL (8.4-10.2); Carbon Dioxide 30 mmol/L (22-30); Chloride 103 mmol/L (98-107); Estimated CRCL calculation 52 ml/min; Estimated Glomerular Filt Rate > 60; Glucose 202 mg/dL (65-110); Sodium 135 mmol/L (137-145)
--- NOTE | 2023-01-17 07:49 | PM.IMPN ---
Progress Note: A&P Assessment and Plan (1) Upper respiratory infection: Code(s): J06.9 - Acute upper respiratory infection, unspecified Status: Acute Assessment and Plan: Negative for influenza, COVID, and strep group A strep. CXR was clear Likely has a viral URI CT shows sinus disease and he was tender to palpation over the maxillary sinuses Started on Augmentin 01/14, continue Mucinex (2) Sinusitis: Code(s): J32.9 - Chronic sinusitis, unspecified Status: Acute Assessment and Plan: CT scan showing moderate sinus disease. Augmentin as above (3) Generalized weakness: Code(s): R53.1 - Weakness Status: Acute Assessment and Plan: Unsure of etiology. 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 TSH low at 0.38 but FT4 normal. B12 low end of normal at 254. VitD okay. PT/OT consult. Continue B12 replacement. (4) Insulin dependent diabetes mellitus: Status: Acute Assessment and Plan: A1c 6.3. The patient's blood glucose was reviewed on 01/17 Glucose was fluctuating but now persistently high. A1c suggests that his home medications should be controlling his glucose Continue AccuCheks covering with sliding scale. Hypoglycemia protocol available as needed. Resume metformin. Advance lantus (5) Atrial fibrillation: Code(s): I48.91 - Unspecified atrial fibrillation Status: Acute Assessment and Plan: Heart rate controlled on metoprolol. Not on chronic anticoagulation, likely due to fall risk. (6) Dementia: Qualifiers: Dementia behavioral or psychological symptom: unspecified whether behavioral, psychotic, or mood disturbance or anxiety Dementia severity: unspecified severity Dementia type: unspecified type Qualified Code(s): F03.90 - Unspecified dementia, unspecified severity, without behavioral disturbance, psychotic disturbance, mood disturbance, and anxiety Code(s): F03.90 - Unspecified dementia, unspecified severity, without behavioral disturbance, psychotic disturbance, mood disturbance, and anxiety Status: Acute Assessment and Plan: Possibly vascular component. Continue donepezil and memantine. (7) Hypertension: Code(s): I10 - Essential (primary) hypertension Status: Acute Assessment and Plan: Patient's blood pressure was reviewed on 01/17 Blood pressure better controlled. Will continue current medications. Plan DVT prophylaxis with SCDs Code status DNR Subjective Date/time seen: 01/17/23 07:49 Interval history: 79-year-old male with dementia, diabetes, heart disease and AFib presenting from a nursing facility with weakness. Alert but confused. He states 'I feel fine'. Hx unreliable Review of Systems Review of Systems: ROS unobtainable: Yes unobtainable due to mental status Exam Narrative: AF 97.9 108/70 87 17 97% ra General: NARD HEENT: Atraumatic, normocephalic, mucous membranes moist CV: Irregularly irregular, S1, S2 Lungs: Clear to auscultation anteriorly Abdomen: Soft, nontender, nondistended Extremities: No pedal edema Skin: warm and dry Psych: alert, confused Objective Data Vital Signs Vital Signs: Vital Signs - 24 hr 01/16/23 09:07 01/16/23 10:06 01/16/23 10:00 Temperature Pulse Rate Respiratory Rate Blood Pressure 100/54 L Pulse Oximetry Oxygen Delivery Room Air Room Air 01/16/23 14:20 01/16/23 14:30 01/16/23 19:28 Temperature 97.6 F 98.1 F Pulse Rate 73 89 Respiratory Rate 18 20 Blood Pressure 126/73 142/72 H Pulse Oximetry 98 98 99 Oxygen Delivery Room Air 01/16/23 22:00 01/16/23 20:00 01/16/23 20:00 Temperature 97.8 F 97.8 F Pulse Rate 76 76 76 Respiratory Rate 17 17 17 Blood Pressure 148/79 H 138/78 Pulse Oximetry 99 99 99 Oxygen Delivery Room Air 01/17/23 04:00 Temperature 97.9 F Pulse Rate 87 Respiratory Rate Blood Pressure 108/70
[2023-01-17 08:00] LABS: Glucose Point of Care 173 mg/dl (65-105)
[2023-01-17] MEDS: CHOLECALCIFEROL 1,000 UNITS TABLET 2000 UNITS PO (09:00)
[2023-01-17] MEDS: metFORMIN HCL XR 500 MG TAB.SR.24H PO (09:02)
[2023-01-17] MEDS: FENOFIBRATE NANOCRYSTALLIZED 145 MG TABLET PO (09:02)
[2023-01-17] MEDS: MEMANTINE 10 MG TABLET PO ×2 (09:02→17:40)
[2023-01-17] MEDS: INSULIN GLARGINE (*BKC) 100 UNITS/ML 8 UNITS SUB-Q (09:04)
[2023-01-17] MEDS: INSULIN ASPART (*BKC) 100 UNITS/ML SUB-Q ×3 (09:04→17:40)
[2023-01-17] MEDS: guaiFENesin 12 HR 600 MG TABCR PO ×2 (09:05→20:18)
[2023-01-17] MEDS: ASPIRIN 81 MG ENTERIC TABLET PO (09:05)
[2023-01-17] MEDS: CYANOCOBALAMIN 1,000 MCG TABLET 1000 MCG PO (09:05)
[2023-01-17] MEDS: TOLTERODINE TARTRATE LA 4 MG CAP.ER.24H PO (09:05)
[2023-01-17 09:06] VITALS: PULSE 73
[2023-01-17] MEDS: CLOPIDOGREL BISULFATE 75 MG TABLET PO (09:06)
[2023-01-17] MEDS: FINASTERIDE 5 MG TABLET PO (09:06)
[2023-01-17] MEDS: ATORVASTATIN 20 MG TABLET PO (09:06)
[2023-01-17] MEDS: lisinopriL 5 MG TABLET PO (09:06)
[2023-01-17] MEDS: AMOXICILLIN/CLAVULANATE K 875-125 MG TAB 1 TABLET PO ×2 (09:06→20:18)
[2023-01-17] MEDS: METOPROLOL TARTRATE 25 MG TABLET PO ×2 (09:06→20:20)
[2023-01-17 11:59] LABS: Glucose Point of Care 183 mg/dl (65-105)
[2023-01-17] MEDS: MICONAZOLE NITRATE 2% CREAM 30 GM TUBE 1 APPLIC TOPICAL ×2 (12:18→20:20)
[2023-01-17 14:00] VITALS: BP 109/47; PULSE 56; RESP 16; TEMP 36.2; O2SAT 98
[2023-01-17 16:50] LABS: Glucose Point of Care 116 mg/dl (65-105)
[2023-01-17 20:00] VITALS: BP 121/81; PULSE 86; RESP 18; O2SAT 100
[2023-01-17] MEDS: DONEPEZIL HCL 10 MG TABLET PO (20:19)
[2023-01-17] MEDS: TAMSULOSIN HCL 0.4 MG CAPSULE PO (20:19)
[2023-01-17] MEDS: MONTELUKAST SODIUM 10 MG TABLET PO (20:19)
[2023-01-17 20:26] LABS: Glucose Point of Care 148 mg/dl (65-105)
[2023-01-17 21:06] VITALS: BP 121/81; PULSE 86; RESP 18; TEMP 36.6; O2SAT 100
[2023-01-17] MEDS: risperiDONE 0.5 MG TABLET PO (23:15)
[2023-01-18] VITALS (10 sets, daily range): BP systolic 93–127; BP diastolic 51–70; PULSE 61–78; RESP 14–20; TEMP 35.7–36.2; O2SAT 95–99
[2023-01-18 05:29] LABS: Basophils Percent Auto 0.4 % (0.2-1.2); Eosinophils Absolute Auto 0.3 K/mm3 (0-0.3); Eosinophils Percent Auto 5.6 % (0-4.4); Hematocrit 36.8 % (42.0-52.0); Hemoglobin 12.3 g/dL (14.0-18.0); Immature Granulocyte Absolute 0.02 K/mm3 (0.00-0.031); Immature Granulocyte Percent A 0.4 % (0-0.5); Lymphocytes Percent Auto 23.8 % (18.3-44.2); Mean Corpuscular HGB Conc 33.4 g/dl (32-36); Mean Corpuscular Hemoglobin 32.3 pg (26-34); Mean Corpuscular Volume 96.6 fl (80-100); Mean Platelet Volume 10.5 fl (7.4-10.4); Monocytes Absolute Auto 0.5 K/mm3 (0.1-0.6); Neutrophils Absolute Auto 2.7 K/mm3 (1.3-6.7); Neutrophils Percent Auto 58.8 % (45.5-73.1); Platelet Count Result 149 k/mm3 (150-375); Red Blood Count 3.81 M/mm3 (4.6-6.20); Red Cell Distribution Width 13.2 % (11.5-14.5); White Blood Count 4.6 K/mm3 (4.5-10.0)
[2023-01-18 05:43] LABS: Alanine Aminotransferase 19 U/L (6-50); Alkaline Phosphatase 70 U/L (38-126); Anion Gap 5 mmol/L (8-16); Aspartate Amino Transferase 18 U/L (17-59); Bilirubin,Total 1.1 mg/dL (0.2-1.3); Blood Urea Nitrogen 26 mg/dL (9-20); Calcium 8.7 mg/dL (8.4-10.2); Carbon Dioxide 29 mmol/L (22-30); Chloride 102 mmol/L (98-107); Estimated CRCL calculation 47 ml/min; Estimated Glomerular Filt Rate > 60; Glucose 148 mg/dL (65-110); Potassium 3.7 mmol/L (3.4-5.0); Sodium 136 mmol/L (137-145)
[2023-01-18 08:02] LABS: Glucose Point of Care 162 mg/dl (65-105)
[2023-01-18] MEDS: TOLTERODINE TARTRATE LA 4 MG CAP.ER.24H PO (10:14)
[2023-01-18] MEDS: CLOPIDOGREL BISULFATE 75 MG TABLET PO (10:14)
[2023-01-18] MEDS: FINASTERIDE 5 MG TABLET PO (10:14)
[2023-01-18] MEDS: ASPIRIN 81 MG ENTERIC TABLET PO (10:14)
[2023-01-18] MEDS: lisinopriL 5 MG TABLET PO (10:15)
[2023-01-18] MEDS: metFORMIN HCL XR 500 MG TAB.SR.24H PO (10:15)
[2023-01-18] MEDS: CHOLECALCIFEROL 1,000 UNITS TABLET 2000 UNITS PO (10:15)
[2023-01-18] MEDS: ATORVASTATIN 20 MG TABLET PO (10:15)
[2023-01-18] MEDS: CYANOCOBALAMIN 1,000 MCG TABLET 1000 MCG PO (10:15)
[2023-01-18] MEDS: INSULIN ASPART (*BKC) 100 UNITS/ML SUB-Q ×4 (10:15→17:24)
[2023-01-18] MEDS: MEMANTINE 10 MG TABLET PO ×2 (10:15→17:25)
[2023-01-18] MEDS: FENOFIBRATE NANOCRYSTALLIZED 145 MG TABLET PO (10:15)
[2023-01-18] MEDS: guaiFENesin 12 HR 600 MG TABCR PO ×2 (10:15→21:13)
[2023-01-18] MEDS: AMOXICILLIN/CLAVULANATE K 875-125 MG TAB 1 TABLET PO ×2 (10:16→21:12)
[2023-01-18] MEDS: METOPROLOL TARTRATE 25 MG TABLET PO ×2 (10:23→21:12)
[2023-01-18] MEDS: INSULIN GLARGINE (*BKC) 100 UNITS/ML 8 UNITS SUB-Q (10:28)
[2023-01-18 12:00] LABS: Glucose Point of Care 289 mg/dl (65-105)
[2023-01-18] MEDS: MICONAZOLE NITRATE 2% CREAM 30 GM TUBE 1 APPLIC TOPICAL ×2 (12:21→21:12)
--- NOTE | 2023-01-18 15:11 | PM.IMPN ---
Progress Note: A&P Assessment and Plan (1) Upper respiratory infection: Code(s): J06.9 - Acute upper respiratory infection, unspecified Status: Acute Assessment and Plan: Negative for influenza, COVID, and strep group A strep. CXR was clear Likely has a viral URI CT shows sinus disease and he was tender to palpation over the maxillary sinuses Started on Augmentin 01/14, continue Mucinex Discharge at any time (2) Sinusitis: Code(s): J32.9 - Chronic sinusitis, unspecified Status: Acute Assessment and Plan: CT scan showing moderate sinus disease. Augmentin as above (3) Generalized weakness: Code(s): R53.1 - Weakness Status: Acute Assessment and Plan: Unsure of etiology. 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 TSH low at 0.38 but FT4 normal. B12 low end of normal at 254. VitD okay. PT/OT consult. Continue B12 replacement. (4) Insulin dependent diabetes mellitus: Status: Acute Assessment and Plan: A1c 6.3. The patient's blood glucose was reviewed on 01/18 Glucose overall better controlled. A1c suggests that his home medications should be controlling his glucose Continue AccuCheks covering with sliding scale. Hypoglycemia protocol available as needed. Continue to monitor (5) Atrial fibrillation: Code(s): I48.91 - Unspecified atrial fibrillation Status: Acute Assessment and Plan: Heart rate controlled on metoprolol. Not on chronic anticoagulation, likely due to fall risk. (6) Dementia: Qualifiers: Dementia behavioral or psychological symptom: unspecified whether behavioral, psychotic, or mood disturbance or anxiety Dementia severity: unspecified severity Dementia type: unspecified type Qualified Code(s): F03.90 - Unspecified dementia, unspecified severity, without behavioral disturbance, psychotic disturbance, mood disturbance, and anxiety Code(s): F03.90 - Unspecified dementia, unspecified severity, without behavioral disturbance, psychotic disturbance, mood disturbance, and anxiety Status: Acute Assessment and Plan: Possibly vascular component. Continue donepezil and memantine. (7) Hypertension: Code(s): I10 - Essential (primary) hypertension Status: Acute Assessment and Plan: Patient's blood pressure was reviewed on 01/18 Blood pressure better controlled. Will continue current medications. Plan DVT prophylaxis with SCDs Code status DNR Subjective Date/time seen: 01/18/23 15:11 Interval history: 79-year-old male with dementia, diabetes, heart disease and AFib presenting from a nursing facility with weakness. No issues overnight. Patient asleep but easily arouses. Hx unreliable Review of Systems Review of Systems: ROS unobtainable: Yes unobtainable due to mental status Exam Narrative: AF 96.6 93/51 61 16 95% ra Gen - NARD Chest - clear anteriorly. nml RR CV - Irregularly irregular, S1, S2 Abd - Soft, nontender, nondistended Ext - No pedal edema Skin - warm and dry Psych - alert, confused Objective Data Vital Signs Vital Signs: Vital Signs - 24 hr 01/17/23 20:00 01/17/23 21:06 01/17/23 20:00 Temperature 97.9 F Pulse Rate 86 86 Respiratory Rate 18 18 Blood Pressure 121/81 121/81 Pulse Oximetry 100 100 Oxygen Delivery Room Air 01/18/23 05:56 01/18/23 10:23 01/18/23 10:31 Temperature 97.1 F L Pulse Rate 68 78 78 Respiratory Rate 19 14 Blood Pressure 127/64 111/70 Pulse Oximetry 99 97 Oxygen Delivery 01/18/23 08:00 01/18/23 10:49 01/18/23 14:00 Temperature 96.2 F L 96.2 F L 96.6 F L Pulse Rate 77 77 61 Respiratory Rate 16 16 16 Blood Pressure 106/60 106/60 93/51 L Pulse Oximetry 95 95 95 Oxygen Delivery Intake/Output Intake/Output: Intake & Output 01/15/23 01/16/23 01/17/23 01/18/23 23:59 23:59 23:59 23:59 Intake Total 688 778 4081 370 Balance 530 7
[2023-01-18 17:02] LABS: Glucose Point of Care 185 mg/dl (65-105)
[2023-01-18] MEDS: ENOXAPARIN 40 MG/0.4 ML SYRINGE SUB-Q (17:39)
[2023-01-18] MEDS: ACETAMINOPHEN 325 MG TABLET 650 MG PO (21:12)
[2023-01-18] MEDS: TAMSULOSIN HCL 0.4 MG CAPSULE PO (21:12)
[2023-01-18] MEDS: MONTELUKAST SODIUM 10 MG TABLET PO (21:12)
[2023-01-18] MEDS: DONEPEZIL HCL 10 MG TABLET PO (21:12)
[2023-01-18 21:29] LABS: Glucose Point of Care 242 mg/dl (65-105)
[2023-01-19 04:54] VITALS: BP 140/86; PULSE 70; RESP 19; TEMP 36.1; O2SAT 100
[2023-01-19] MEDS: TOLTERODINE TARTRATE LA 4 MG CAP.ER.24H PO (08:59)
[2023-01-19] MEDS: AMOXICILLIN/CLAVULANATE K 875-125 MG TAB 1 TABLET PO ×2 (08:59→21:44)
[2023-01-19] MEDS: ASPIRIN 81 MG ENTERIC TABLET PO (08:59)
[2023-01-19] MEDS: CYANOCOBALAMIN 1,000 MCG TABLET 1000 MCG PO (08:59)
[2023-01-19] MEDS: metFORMIN HCL XR 500 MG TAB.SR.24H PO (08:59)
[2023-01-19] MEDS: MEMANTINE 10 MG TABLET PO ×2 (08:59→17:47)
[2023-01-19] MEDS: CHOLECALCIFEROL 1,000 UNITS TABLET 2000 UNITS PO (08:59)
[2023-01-19] MEDS: METOPROLOL TARTRATE 25 MG TABLET PO ×2 (08:59→21:44)
[2023-01-19] MEDS: CLOPIDOGREL BISULFATE 75 MG TABLET PO (08:59)
[2023-01-19] MEDS: lisinopriL 5 MG TABLET PO (08:59)
[2023-01-19] MEDS: FINASTERIDE 5 MG TABLET PO (08:59)
[2023-01-19] MEDS: guaiFENesin 12 HR 600 MG TABCR PO ×2 (08:59→21:44)
[2023-01-19] MEDS: FENOFIBRATE NANOCRYSTALLIZED 145 MG TABLET PO (09:00)
[2023-01-19] MEDS: ATORVASTATIN 20 MG TABLET PO (09:00)
[2023-01-19] MEDS: INSULIN GLARGINE (*BKC) 100 UNITS/ML 8 UNITS SUB-Q (09:00)
[2023-01-19] MEDS: ENOXAPARIN 40 MG/0.4 ML SYRINGE SUB-Q (09:00)
[2023-01-19] MEDS: INSULIN ASPART (*BKC) 100 UNITS/ML SUB-Q ×3 (09:00→12:23)
[2023-01-19] MEDS: MICONAZOLE NITRATE 2% CREAM 30 GM TUBE 1 APPLIC TOPICAL ×2 (09:01→21:45)
[2023-01-19 12:21] LABS: Glucose Point of Care 290 mg/dl (65-105)
--- NOTE | 2023-01-19 13:00 | PCNFU ---
Nutrition Follow-Up Complete: Inadequate energy intake related to reduced appetite and refusal of meals as evidenced by nursing report and charted intake. Goal: PO intake 50% or greater for meals and supplements - Goal is being met Pt current nutrition is Regular diet. 50-75% meals. Ensure compact BID for additional 220 kcals and 9 g protein each. Drinking 100% Ensure. Nutrition recommendation: Continue with current nutrition care plan. Agree with orders. Last recorded weight is 75.5 kg. Bowel Motility: Last BM 01/15/23 Labs Reviewed:Hgb 12.3, Hct 36.8, Alb 3.0, Na 136, BUN 26, Glu 290 Meds Noted: Donepezil, memantine, Novolog, lantus Skin: WNL Additional Notes: Intakes improved to 50-75% and drinking Ensure. Monitor intake, wt, labs. Follow up in 3 days.
[2023-01-19 14:48] VITALS: BP 97/53; PULSE 98; RESP 18; TEMP 35.9; O2SAT 100
--- NOTE | 2023-01-19 17:11 | PM.IMPN ---
Progress Note: A&P Assessment and Plan (1) Upper respiratory infection: Code(s): J06.9 - Acute upper respiratory infection, unspecified Status: Acute Assessment and Plan: Negative for influenza, COVID, and strep group A strep. CXR was clear Likely has a viral URI CT shows sinus disease and he was tender to palpation over the maxillary sinuses Started on Augmentin 01/14, continue Mucinex Discharge at any time (2) Sinusitis: Code(s): J32.9 - Chronic sinusitis, unspecified Status: Acute Assessment and Plan: CT scan showing moderate sinus disease. Augmentin as above (3) Generalized weakness: Code(s): R53.1 - Weakness Status: Acute Assessment and Plan: Unsure of etiology. 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 TSH low at 0.38 but FT4 normal. B12 low end of normal at 254. VitD okay. PT/OT consult. Continue B12 replacement. Clinically better (4) Insulin dependent diabetes mellitus: Status: Acute Assessment and Plan: A1c 6.3. The patient's blood glucose was reviewed on 01/19 Glucose better this morning but still elevated at times. A1c suggests that his home medications should be controlling his glucose Continue AccuCheks covering with sliding scale. Hypoglycemia protocol available as needed. Advance meal time insulin. Continue to monitor (5) Atrial fibrillation: Code(s): I48.91 - Unspecified atrial fibrillation Status: Acute Assessment and Plan: Heart rate controlled on metoprolol. Not on chronic anticoagulation likely due to fall risk. (6) Dementia: Qualifiers: Dementia behavioral or psychological symptom: unspecified whether behavioral, psychotic, or mood disturbance or anxiety Dementia severity: unspecified severity Dementia type: unspecified type Qualified Code(s): F03.90 - Unspecified dementia, unspecified severity, without behavioral disturbance, psychotic disturbance, mood disturbance, and anxiety Code(s): F03.90 - Unspecified dementia, unspecified severity, without behavioral disturbance, psychotic disturbance, mood disturbance, and anxiety Status: Acute Assessment and Plan: Possibly vascular component. Continue donepezil and memantine. (7) Hypertension: Code(s): I10 - Essential (primary) hypertension Status: Acute Assessment and Plan: Patient's blood pressure was reviewed on 01/19 Blood pressure soft at times. Will continue current medications for now. Plan DVT prophylaxis - lovenox Code status DNR Subjective Date/time seen: 01/19/23 17:11 Interval history: 79-year-old male with dementia, diabetes, heart disease and AFib presenting from a nursing facility with weakness. More awake and alert. Confused so hx unreliable Review of Systems Review of Systems: ROS unobtainable: Yes unobtainable due to mental status Exam Narrative: AF 96.8 97/53 98 18 100% ra Gen - NARD Chest - clear anteriorly. nml RR CV - Irregularly irregular, S1, S2 Abd - Soft, nontender, nondistended Ext - No pedal edema Skin - warm and dry Psych - alert, confused Objective Data Vital Signs Vital Signs: Vital Signs - 24 hr 01/18/23 19:48 01/18/23 20:01 01/18/23 20:00 Temperature 97 F L 97 F L Pulse Rate 70 70 70 Respiratory Rate 20 20 20 Blood Pressure 113/59 L 113/59 L Pulse Oximetry 97 97 97 Oxygen Delivery Room Air 01/19/23 04:54 01/19/23 14:48 Temperature 97 F L 96.7 F L Pulse Rate 70 98 Respiratory Rate 19 18 Blood Pressure 140/86 97/53 L Pulse Oximetry 100 100 Oxygen Delivery Intake/Output Intake/Output: Intake & Output 01/16/23 01/17/23 01/18/23 01/19/23 23:59 23:59 23:59 23:59 Intake Total 730 1200 1100 710 Balance 730 1200 1100 710 Meds/Results Medications: Active Medications Generic Name Dose Route Start Last Admin Trade Name Freq PRN Reason Stop Dose Admin Acetaminophen 65
[2023-01-19 17:27] LABS: Glucose Point of Care 159 mg/dl (65-105)
[2023-01-19 20:36] LABS: Glucose Point of Care 149 mg/dl (65-105)
[2023-01-19 21:35] VITALS: BP 125/69; PULSE 65; RESP 17; TEMP 36.8; O2SAT 98
[2023-01-19 21:44] VITALS: PULSE 65
[2023-01-19] MEDS: DONEPEZIL HCL 10 MG TABLET PO (21:44)
[2023-01-19] MEDS: TAMSULOSIN HCL 0.4 MG CAPSULE PO (21:44)
[2023-01-19] MEDS: MONTELUKAST SODIUM 10 MG TABLET PO (21:44)
[2023-01-20 05:22] VITALS: BP 146/88; PULSE 77; RESP 18; TEMP 36.7; O2SAT 99
[2023-01-20 08:42] LABS: Glucose Point of Care 141 mg/dl (65-105)
[2023-01-20] MEDS: FINASTERIDE 5 MG TABLET PO (09:38)
[2023-01-20] MEDS: FENOFIBRATE NANOCRYSTALLIZED 145 MG TABLET PO (09:38)
[2023-01-20] MEDS: CYANOCOBALAMIN 1,000 MCG TABLET 1000 MCG PO (09:38)
[2023-01-20] MEDS: MEMANTINE 10 MG TABLET PO ×2 (09:38→16:24)
[2023-01-20] MEDS: ATORVASTATIN 20 MG TABLET PO (09:38)
[2023-01-20] MEDS: ENOXAPARIN 40 MG/0.4 ML SYRINGE SUB-Q (09:38)
[2023-01-20] MEDS: guaiFENesin 12 HR 600 MG TABCR PO ×2 (09:38→22:03)
[2023-01-20] MEDS: CLOPIDOGREL BISULFATE 75 MG TABLET PO (09:38)
[2023-01-20] MEDS: AMOXICILLIN/CLAVULANATE K 875-125 MG TAB 1 TABLET PO ×2 (09:38→22:03)
[2023-01-20] MEDS: CHOLECALCIFEROL 1,000 UNITS TABLET 2000 UNITS PO (09:38)
[2023-01-20] MEDS: METOPROLOL TARTRATE 25 MG TABLET PO ×2 (09:39→22:03)
[2023-01-20] MEDS: metFORMIN HCL XR 500 MG TAB.SR.24H PO (09:39)
[2023-01-20] MEDS: lisinopriL 5 MG TABLET PO (09:39)
[2023-01-20] MEDS: TOLTERODINE TARTRATE LA 4 MG CAP.ER.24H PO (09:39)
[2023-01-20] MEDS: ASPIRIN 81 MG ENTERIC TABLET PO (09:39)
[2023-01-20] MEDS: MICONAZOLE NITRATE 2% CREAM 30 GM TUBE 1 APPLIC TOPICAL ×2 (09:39→22:04)
[2023-01-20] MEDS: INSULIN ASPART (*BKC) 100 UNITS/ML SUB-Q ×3 (09:45→17:52)
[2023-01-20] MEDS: INSULIN GLARGINE (*BKC) 100 UNITS/ML 8 UNITS SUB-Q (09:47)
[2023-01-20 12:14] LABS: Glucose Point of Care 187 mg/dl (65-105)
[2023-01-20 14:15] VITALS: BP 105/79; PULSE 75; RESP 18; TEMP 36.6; O2SAT 97
[2023-01-20 17:15] LABS: Glucose Point of Care 190 mg/dl (65-105)
--- NOTE | 2023-01-20 18:40 | PM.IMPN ---
Progress Note: A&P Assessment and Plan (1) Upper respiratory infection: Code(s): J06.9 - Acute upper respiratory infection, unspecified Status: Acute Assessment and Plan: Negative for influenza, COVID, and strep group A strep. CXR was clear Likely has a viral URI CT shows sinus disease and he was tender to palpation over the maxillary sinuses Started on Augmentin 01/14, continue Mucinex Discharge at any time 01/20/2023 interval history: 87-year-old male presented with generalized weakness found to upper respiratory infection most likely viral CT scan of the head concerning for sinusitis and patient is being treated with Augmentin, patient is somnolent unable to provide any detailed review of symptoms, patient is waiting for the placement, patient is working PT OT. Will continue to monitor (2) Sinusitis: Code(s): J32.9 - Chronic sinusitis, unspecified Status: Acute Assessment and Plan: CT scan showing moderate sinus disease. Augmentin as above (3) Generalized weakness: Code(s): R53.1 - Weakness Status: Acute Assessment and Plan: Unsure of etiology. 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 TSH low at 0.38 but FT4 normal. B12 low end of normal at 254. VitD okay. PT/OT consult. Continue B12 replacement. Clinically better (4) Insulin dependent diabetes mellitus: Status: Acute Assessment and Plan: A1c 6.3. The patient's blood glucose was reviewed on 01/19 Glucose better this morning but still elevated at times. A1c suggests that his home medications should be controlling his glucose Continue AccuCheks covering with sliding scale. Hypoglycemia protocol available as needed. Advance meal time insulin. Continue to monitor (5) Atrial fibrillation: Code(s): I48.91 - Unspecified atrial fibrillation Status: Acute Assessment and Plan: Heart rate controlled on metoprolol. Not on chronic anticoagulation likely due to fall risk. (6) Dementia: Qualifiers: Dementia behavioral or psychological symptom: unspecified whether behavioral, psychotic, or mood disturbance or anxiety Dementia severity: unspecified severity Dementia type: unspecified type Qualified Code(s): F03.90 - Unspecified dementia, unspecified severity, without behavioral disturbance, psychotic disturbance, mood disturbance, and anxiety Code(s): F03.90 - Unspecified dementia, unspecified severity, without behavioral disturbance, psychotic disturbance, mood disturbance, and anxiety Status: Acute Assessment and Plan: Possibly vascular component. Continue donepezil and memantine. (7) Hypertension: Code(s): I10 - Essential (primary) hypertension Status: Acute Assessment and Plan: Patient's blood pressure was reviewed on 01/19 Blood pressure soft at times. Will continue current medications for now. Plan DVT prophylaxis - lovenox Code status DNR Subjective Date/time seen: 01/20/23 18:40 01/20/2023 interval history: 87-year-old male presented with generalized weakness found to upper respiratory infection most likely viral CT scan of the head concerning for sinusitis and patient is being treated with Augmentin, patient is somnolent unable to provide any detailed review of symptoms, patient is waiting for the placement, patient is working PT OT. Will continue to monitor Review of Systems Review of Systems: ROS unobtainable: Yes unobtainable due to mental status Exam Narrative: Elderly frail Patient is comfortable, NAD HEENT: eyes are clear and none icteric LUNGS: Normal respiratory effort ABD: Not distended Lower extremities: no edema SKIN: nonjaundiced Neuro: grossly intact. Objective Data Vital Signs Vital Signs: Vital Signs - 24 hr 01/19/23 21:44 01/19/23 21:35 01/19/23 21:35 Temperature 98.2 F Pulse Rate 65 65 Respiratory Rate 17 Blood Pressure 125/69 Pulse
[2023-01-20 21:13] LABS: Glucose Point of Care 135 mg/dl (65-105)
[2023-01-20 21:42] VITALS: BP 130/69; PULSE 69; RESP 17; TEMP 36.8; O2SAT 97
[2023-01-20 22:03] VITALS: PULSE 69
[2023-01-20] MEDS: DONEPEZIL HCL 10 MG TABLET PO (22:03)
[2023-01-20] MEDS: TAMSULOSIN HCL 0.4 MG CAPSULE PO (22:03)
[2023-01-20] MEDS: MONTELUKAST SODIUM 10 MG TABLET PO (22:03)
[2023-01-21 05:08] VITALS: BP 102/65; PULSE 76; RESP 17; TEMP 36.7; O2SAT 93
[2023-01-21 08:43] LABS: Glucose Point of Care 110 mg/dl (65-105)
--- NOTE | 2023-01-21 08:47 | PM.DS ---
DS: Admitting Diagnosis Discharge Date Admitting Diagnosis Weakness DS: Discharge Diagnosis Discharge Diagnosis (1) Upper respiratory infection: Code(s): J06.9 - Acute upper respiratory infection, unspecified Status: Acute Assessment and Plan: Negative for influenza, COVID, and strep group A strep. CXR was clear Likely has a viral URI CT shows sinus disease and he was tender to palpation over the maxillary sinuses Started on Augmentin 01/14, continue Mucinex Discharge at any time 01/20/2023 interval history: 87-year-old male presented with generalized weakness found to upper respiratory infection most likely viral CT scan of the head concerning for sinusitis and patient is being treated with Augmentin, patient is somnolent unable to provide any detailed review of symptoms, patient is waiting for the placement, patient is working PT OT. Will continue to monitor (2) Sinusitis: Code(s): J32.9 - Chronic sinusitis, unspecified Status: Acute Assessment and Plan: CT scan showing moderate sinus disease. Augmentin as above (3) Generalized weakness: Code(s): R53.1 - Weakness Status: Acute Assessment and Plan: Unsure of etiology. 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 TSH low at 0.38 but FT4 normal. B12 low end of normal at 254. VitD okay. PT/OT consult. Continue B12 replacement. Clinically better (4) Insulin dependent diabetes mellitus: Status: Acute Assessment and Plan: A1c 6.3. The patient's blood glucose was reviewed on 01/19 Glucose better this morning but still elevated at times. A1c suggests that his home medications should be controlling his glucose Continue AccuCheks covering with sliding scale. Hypoglycemia protocol available as needed. Advance meal time insulin. Continue to monitor (5) Atrial fibrillation: Code(s): I48.91 - Unspecified atrial fibrillation Status: Acute Assessment and Plan: Heart rate controlled on metoprolol. Not on chronic anticoagulation likely due to fall risk. (6) Dementia: Qualifiers: Dementia behavioral or psychological symptom: unspecified whether behavioral, psychotic, or mood disturbance or anxiety Dementia severity: unspecified severity Dementia type: unspecified type Qualified Code(s): F03.90 - Unspecified dementia, unspecified severity, without behavioral disturbance, psychotic disturbance, mood disturbance, and anxiety Code(s): F03.90 - Unspecified dementia, unspecified severity, without behavioral disturbance, psychotic disturbance, mood disturbance, and anxiety Status: Acute Assessment and Plan: Possibly vascular component. Continue donepezil and memantine. (7) Hypertension: Code(s): I10 - Essential (primary) hypertension Status: Acute Assessment and Plan: Patient's blood pressure was reviewed on 01/19 Blood pressure soft at times. Will continue current medications for now. Plan DVT prophylaxis - lovenox Code status DNR DS: Summary Hospital Course Reason for hospitalization: Weakness. Narrative: This is an 87-year-old male with dementia, insulin-dependent diabetes, hypertension, coronary artery disease, paroxysmal atrial fibrillation, and other comorbidities who presented to the emergency department via EMS from [facility] for evaluation of weakness. The patient is an unreliable historian and thus the following history is obtained via a review of his electronic medical records as well as discussions with his son Darrion who is at bedside. The patient has his own apartment at the assisted living facility and he typically gets around well with a Rollator. He is able to get himself down to the dining room and seems to do well. Over the last several days however he has had sinus and chest congestion and has been more fatigued and weak than usual. Staff at the assisted living facility
--- NOTE | 2023-01-21 08:53 | PC.NURSE ---
Pt uncooperative and slightly aggressive. Will not take pills for RN. Pt to be discharged this morning. Will attempt to give medications again prior to discharge.
[2023-01-21 10:32] LABS: EDCOVIDSCREEN Negative (Negative)
== END 2023-01-21 12:27 ==
LOC: ANHED 11:08 → ANH2MED 18:35
PROVIDERS: Physician Assistant; Student in an Organized Health Care Education/Training Program; Admitting Provider Chiropractor; Emergency Provider Emergency Medicine; Visit Provider Family Medicine
DX: J06.9 Acute upper respiratory infection, unspecified (principal); J32.9 Chronic sinusitis, unspecified; R53.1 Weakness; E11.9 Type 2 diabetes mellitus without complications; I48.91 Unspecified atrial fibrillation; F03.90 Unspecified dementia, unspecified severity, without behavioral disturbance, psychotic disturbance, mood disturbance, and anxiety; I10 Essential (primary) hypertension; R26.9 Unspecified abnormalities of gait and mobility; R09.89 Other specified symptoms and signs involving the circulatory and respiratory systems; Z20.822 Contact with and (suspected) exposure to COVID-19; Z99.89 Dependence on other enabling machines and devices; I25.10 Atherosclerotic heart disease of native coronary artery without angina pectoris; Z95.1 Presence of aortocoronary bypass graft; E78.00 Pure hypercholesterolemia, unspecified; M48.061 Spinal stenosis, lumbar region without neurogenic claudication; Z98.62 Peripheral vascular angioplasty status; R94.31 Abnormal electrocardiogram [ECG] [EKG]; Z86.79 Personal history of other diseases of the circulatory system; Z86.73 Personal history of transient ischemic attack (TIA), and cerebral infarction without residual deficits; Z79.4 Long term (current) use of insulin; Z79.82 Long term (current) use of aspirin; Z79.02 Long term (current) use of antithrombotics/antiplatelets; Z79.84 Long term (current) use of oral hypoglycemic drugs; Z79.899 Other long term (current) drug therapy
CPT/HCPCS: 36415; 70450; 71045; 80048; 80053; 81003; 82306; 82607; 82746; 82948; 83036; 83735; 84439; 84443; 84480; 85025; 85027; 85055; 87426; 87636; 87651; 93005; 96372; 97110; 97162; 97165; 97530; 99285; A9270; C9803; G0378; J1650; J1815; J7120

== ENCOUNTER 2023-02-14 12:21 | Emergency (ER) | payer MEDICARE, SELFPAY ==
[2023-02-14] VITALS (18 sets, daily range): BP systolic 119–160; BP diastolic 60–92; PULSE 68–83; RESP 14–20; TEMP 36.4; O2SAT 96–100
--- NOTE | ~2023-02-14 | CT_ITS ---
EXAMINATION: CT chest abdomen pelvis w con DATE: 02/14/2023 14:48 INDICATION: fall, pain and ecchymosis of right upper quadrant . TECHNIQUE: Computed tomography (CT) of the chest, abdomen, and pelvis was performed with 100 mL Omnip aque-350 intravenous contrast. Automated exposure control and iterative reconstruction technique were employed. The dose-length product was 1228.54 mGy-cm. COMPARISON: CT abdomen and pelvis 12/15/2022; x-ray chest 01/14/2023 FINDINGS: CHEST: No thoracic aortic injury. 5.0 cm ascending thoracic aorta. Aortic arch ectasia. No mediastinal hematoma. Dilated central pulmonary arteries as can be seen with pulmonary arterial hy pertension. No pericardial effusion. Cardiomegaly with severe coronary artery calcification and/or multiple stent s. No acute lung injury. Mild interstitial edema. Motion artifact in the lungs. No pleural effusion or pneumothorax. ABDOMEN/PELVIS: No solid organ injury. Cholelithiasis. Pancreatic atrophy. Multiple subcentimeter pancreatic cysts. M ultiple bilateral simple renal cysts. Bilateral cortical atrophy. Persistent bilateral pelviectasis. No evidence of bowel or mesenteric injury. No free fluid or free air. No retroperitoneal hematoma. 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 Areas of potential endoleak described in the prior study are less well seen, noting this examination is not t ailored for that determination. Bilateral thrombosed iliac artery aneurysms. Multiple right iliac salima nts. Right femoral to left femoral graft, which appears patent. Pelvic contents are atraumatic. MUSCULOSKELETAL: No acute fracture. Soft tissue anchor in the right humeral head. Prior median sternotomy, with stable fractured wire. Symmetric bilateral gynecomastia. No fracture or traumatic malalignment of the thoracic or lumbar spine. Prior L2-3 laminectomy. IMPRESSION: No acute process detected in the chest, abdomen, or pelvis. Chronic and incidental findings detailed above. Reviewed, dictated and finalized at location K. IMPRESSION: No acute process detected in the chest, abdomen, or pelvis. Chronic and inciden suyapa findings detailed above.
--- NOTE | ~2023-02-14 | CT_ITS ---
EXAMINATION: CT brain wo con DATE: 02/14/2023 14:47 INDICATION: AMS, fall, hypoglycemia . TECHNIQUE: Computed tomography (CT) of the head was performed without intravenous contrast. The mA wa s adjusted according to patient size. Iterative reconstruction technique was employed. The dose-lengt h product was 605.33 mGy-cm. COMPARISON: 01/14/23. FINDINGS: No acute intracranial hemorrhage or extra-axial fluid collection. No hydrocephalus, mass, or herniation. No acute ischemic infarct. Unremarkable dural venous sinus attenuation. No acute osseous abnormality. Left maxillary, sphenoid, and ethmoid air cell mucosal thickening, the remaining aerated spaces are c lear. Moderate atrophy and chronic white matter change. Atherosclerotic intracranial calcification. Focal o ld left cerebellar infarct. Left occipital encephalomalacia, likely old infarct. Bilateral lens repla cements. IMPRESSION: No acute intracranial process. Reviewed, dictated and finalized at location K.
[2023-02-14 12:32] LABS: Glucose Point of Care 121 mg/dl (65-105)
--- NOTE | 2023-02-14 12:48 | ED.FALL ---
HPI - Fall General Chief Complaint: Fall Stated Complaint: unwitnessed GLF Time Seen by Provider: 02/14/23 12:40 History of Present Illness HPI Narrative: 87-year-old male with history of dementia type 2 diabetes presented the ED for evaluation for altered mental status. Patient was found on the ground at the halfway with increased confusion and some slurred speech. Patient was found to have a blood sugar of 38. Patient was treated with D10 and upon arrival to the ED patient's blood sugar was 120. Patient is alert and oriented x1 at baseline. Patient is alert and responsive to voice and initially denied any complaint. Patient did have some ecchymosis to his right upper quadrant and does report some pain at that site. Related Data Home Medications Medication Instructions Recorded Confirmed aspirin 81 mg tablet,delayed 81 mg PO DAILY 01/14/23 02/11/23 release atorvastatin 20 mg tablet 20 mg PO DAILY 01/14/23 02/11/23 cholecalciferol (vitamin D3) 50 50 mcg PO DAILY 01/14/23 02/11/23 mcg (2,000 unit) tablet clopidogrel 75 mg tablet 75 mg PO DAILY 01/14/23 02/11/23 donepezil 10 mg tablet 10 mg PO HS 01/14/23 02/11/23 fenofibrate nanocrystallized 145 145 mg PO DAILY 01/14/23 02/11/23 mg tablet finasteride 5 mg tablet 5 mg PO DAILY 01/14/23 02/11/23 guaifenesin 600 mg tablet, 600 mg PO BID 01/14/23 02/11/23 extended release 12 hr (Mucus Relief ER) insulin aspart U-100 100 unit/mL 3 unit subcut TIDWMEAL 01/14/23 02/11/23 (3 mL) subcutaneous pen (Novolog FlexPen U-100 Insulin aspart) insulin glargine 100 unit/mL (3 5 unit subcut DAILY 01/14/23 02/11/23 mL) subcutaneous pen (Basaglar KwikPen U-100 Insulin) lisinopril 5 mg tablet 5 mg PO DAILY 01/14/23 02/11/23 memantine 10 mg tablet 10 mg PO BID 01/14/23 02/11/23 metformin 500 mg tablet,extended 500 mg PO DAILY 01/14/23 02/11/23 release 24 hr metoprolol tartrate 25 mg tablet 25 mg PO BID 01/14/23 02/11/23 montelukast 10 mg tablet 10 mg PO HS 01/14/23 02/11/23 tamsulosin 0.4 mg capsule 0.4 mg PO HS 01/14/23 02/11/23 tolterodine 4 mg capsule,extended 4 mg PO DAILY 01/14/23 02/11/23 release 24 hr Allergies Allergy/AdvReac Type Severity Reaction Status Date / Time No Known Allergies Allergy Verified 02/14/23 12:49 Review of Systems Review of Systems: All systems reviewed & are unremarkable except as noted in HPI and below [facility] Past Medical History Medical History (Updated 02/14/23 @ 16:55 by Danny Kessler MD) Atrial fibrillation Coronary artery disease Dementia Diabetes mellitus Hypercholesterolemia Hypertension Insulin dependent diabetes mellitus Lumbar radiculopathy Spinal stenosis Surgical History Surgical History (Updated 01/14/23 @ 17:14 by Mona Reyes PA-C) History of aortic aneurysm repair Status post insertion of iliac artery stent Family History Family History (Updated 01/14/23 @ 17:15 by Mona Reyes PA-C) Other Family history unknown Social History Social History (Updated 01/14/23 @ 22:07 by Moan Reyes PA-C) Social History: Healthcare power of defense attorney: Lilliana Lu, daughter. Code status: Do not resuscitate. Smoking status: Never smoker Alcohol intake: never Substance use: never Other substance usage details: patient has history of dementia, difficult to obtain accurate information Additional living arrangements comments: Assisted living at [facility]. 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 Spiritual care concerns: No Exam Narrative: APPEARANCE: Well appearing, no pain, no distress, well-nourished. HEAD: normocephalic, atraumatic. EYES: PERRLA/EOMI, conjunctivae clear. NOSE: Normal no drainage EARS:TMS clear with good light reflex. THROAT: Pharynx clear, no exudate. NECK: Supple. No adenopathy, no masses. RESPIRATORY: Airway patent, respirations nonlabored. Clear to auscultation bilaterally, no rales, rhonchi, whe
[2023-02-14 13:09] LABS: Glucose Point of Care 136 mg/dl (65-105)
[2023-02-14 13:17] LABS: Appearance Urine Clear (Clear); Bilirubin Urine Negative (Negative); Blood Urine Negative (Negative); Color Urine Yellow (Yellow); Glucose Urine UA Negative (Negative); Ketones Urine Negative (Negative); Leukocyte Esterase Ur Negative LEU/UL (Negative); Nitrate Urine Negative (Negative); Protein Urine Negative (Negative)
[2023-02-14 13:18] LABS: Basophils Percent Auto 0.2 % (0.2-1.2); Eosinophils Absolute Auto 0.1 K/mm3 (0-0.3); Eosinophils Percent Auto 1.7 % (0-4.4); Hematocrit 36.6 % (42.0-52.0); Immature Granulocyte Absolute 0.02 K/mm3 (0.00-0.031); Immature Granulocyte Percent A 0.5 % (0-0.5); Immature Platelet Fraction Pct 5.4 % (0.9-11.2); Lymphocytes Absolute Auto 0.38 K/mm3 (0.9-3.2); Mean Corpuscular HGB Conc 32.8 g/dl (32-36); Mean Corpuscular Hemoglobin 31.8 pg (26-34); Mean Corpuscular Volume 97.1 fl (80-100); Mean Platelet Volume 10.6 fl (7.4-10.4); Monocytes Absolute Auto 0.3 K/mm3 (0.1-0.6); Neutrophils Absolute Auto 3.4 K/mm3 (1.3-6.7); Neutrophils Percent Auto 80.6 % (45.5-73.1); Platelet Count Result 127 k/mm3 (150-375); Red Blood Count 3.77 M/mm3 (4.6-6.20); Red Cell Distribution Width 14.1 % (11.5-14.5); White Blood Count 4.2 K/mm3 (4.5-10.0)
[2023-02-14 13:25] LABS: INR 1.3; Prothrombin Time 17.1 Seconds (11.1-14.7)
[2023-02-14 13:26] LABS: Partial Thromboplastin Time 31.9 SECONDS (22.3-36.8)
[2023-02-14 13:27] LABS: Alanine Aminotransferase 28 U/L (6-50); Alkaline Phosphatase 89 U/L (38-126); Anion Gap 5 mmol/L (8-16); Aspartate Amino Transferase 33 U/L (17-59); Bilirubin,Total 1.1 mg/dL (0.2-1.3); Blood Urea Nitrogen 24 mg/dL (9-20); Calcium 8.3 mg/dL (8.4-10.2); Carbon Dioxide 28 mmol/L (22-30); Chloride 106 mmol/L (98-107); Estimated CRCL calculation 47 ml/min; Estimated Glomerular Filt Rate > 60; Glucose 132 mg/dL (65-110); Potassium 3.7 mmol/L (3.4-5.0); Sodium 139 mmol/L (137-145)
[2023-02-14 13:28] LABS: Add Urine Microscopic? NO
--- NOTE | 2023-02-14 16:59 | PC.NURSE ---
patient's dinner tray ordered at this time.
[2023-02-14 17:01] LABS: Glucose Point of Care 88 mg/dl (65-105)
== END 2023-02-14 18:31 ==
PROVIDERS: Emergency Provider Emergency Medicine; PCP Internal Medicine
DX: E11.649 Type 2 diabetes mellitus with hypoglycemia without coma (principal); F03.90 Unspecified dementia, unspecified severity, without behavioral disturbance, psychotic disturbance, mood disturbance, and anxiety; I25.10 Atherosclerotic heart disease of native coronary artery without angina pectoris; I48.91 Unspecified atrial fibrillation; E78.00 Pure hypercholesterolemia, unspecified; I10 Essential (primary) hypertension; Z66 Do not resuscitate; Z79.4 Long term (current) use of insulin; Z79.84 Long term (current) use of oral hypoglycemic drugs; Z79.82 Long term (current) use of aspirin
CPT/HCPCS: 36415; 70450; 71260; 74177; 80053; 81003; 82948; 85025; 85055; 85610; 85730; 99284; Q9967

== ENCOUNTER 2023-02-21 11:46 | Emergency (ER) | payer MEDICARE, SELFPAY ==
--- NOTE | ~2023-02-21 | XR_ITS ---
EXAMINATION: XR chest 1V portable DATE: 02/21/2023 12:53 INDICATION: Chest pain. TECHNIQUE: A single frontal view of the chest was obtained. COMPARISON: Chest single view 01/14/2023, chest CT 02/14/2023 FINDINGS: There are mild airspace opacities in the perihilar regions and lower lung zones. No pleural effusion or pneumothorax. Cardiomegaly is noted. Median sternotomy wires and mediastinal surgical cl ips are seen, likely from prior coronary artery bypass grafting. There is a suture anchor in right hu meral head. IMPRESSION: 1. Mild airspace opacities in the perihilar regions and lower lung zones, consistent with atelectasis versus mild pulmonary edema. 2. Cardiomegaly. Reviewed, dictated and finalized at location A. IMPRESSION: 1. Mild airspace opacities in the perihilar regions and lower lung zones, consi stent with atelectasis versus mild pulmonary edema. 2. Cardiomegaly.
--- NOTE | ~2023-02-21 | CT_ITS ---
EXAMINATION: CT brain wo con DATE: 02/21/2023 13:45 INDICATION: Head injury. TECHNIQUE: Computed tomography (CT) of the head was performed without intravenous contrast. The mA wa s adjusted according to patient size. Iterative reconstruction technique was employed. The dose-lengt h product was 681.00 mGy-cm. COMPARISON: Head CT 02/14/2023 FINDINGS: There is a small old infarct in left cerebellum. There is an old infarct in left occipital lobe. There are scattered areas of low attenuation in the cerebral white matter. There is no intracra nial hemorrhage, acute infarction, or abnormal intracranial mass lesion. There is ex vacuo dilatation of the occipital horn of left lateral ventricle. There are likely changes of ocular lens replacement surgeries. There is mucosal thickening in the paranasal sinuses. The mastoid air cells are normal. T here is cerumen in the external auditory canals. IMPRESSION: 1. 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 2. Stable mild nonspecific cerebral white matter disease, which likely represents chronic small vesse l ischemic disease. Reviewed, dictated and finalized at location A. IMPRESSION: 1. 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 2. Stable mild nonspecific cerebral white matter disease, which likely represen ts chronic small vessel ischemic disease.
--- NOTE | ~2023-02-21 | CT_ITS ---
EXAMINATION: CT cervical spine wo con DATE: 02/21/2023 13:45 INDICATION: Neck injury. TECHNIQUE: Computed tomography (CT) of the cervical spine was performed without intravenous contrast. Automated exposure control and iterative reconstruction technique were employed. The dose-length pro duct was 381.95 mGy-cm. COMPARISON: CT cervical spine 12/15/2022 FINDINGS: The visualized portions of the lung apices demonstrate septal thickening. There is 14 degre es levoscoliosis of cervical spine. There is mild kyphosis of lower cervical spine. Vertebral body he ights are normal. There is severely decreased disc height at C6-C7 and C7-T1. The following disc leve ls are specifically discussed: C2-C3: There is mild right and severe left uncovertebral joint osteoarthritis. There is mild right an d severe left facet joint osteoarthritis. There is moderate left neural foraminal stenosis. There is mild central canal stenosis. C3-C4: There is severe right and moderate left uncovertebral joint osteoarthritis. There is severe bi lateral facet joint osteoarthritis. There is moderate right and mild left neural foraminal stenosis. There is mild central canal stenosis. C4-C5: There is moderate uncovertebral joint osteoarthritis. There is severe right and mild left face t joint osteoarthritis. There is mild right neural foraminal stenosis. There is mild central canal st enosis. C5-C6: There is mild right and severe left uncovertebral joint osteoarthritis. There is severe bilate ral facet joint osteoarthritis. There is mild left neural foraminal stenosis. There is mild central c anal stenosis. C6-C7: There is severe right and moderate left uncovertebral joint osteoarthritis. There is severe bi lateral facet joint osteoarthritis. There is mild bilateral neural foraminal stenosis. There is mild central canal stenosis. C7-T1: There is mild bilateral uncovertebral joint osteoarthritis. There is mild bilateral facet join t osteoarthritis. There is mild bilateral neural foraminal stenosis. There is mild central canal sten osis. IMPRESSION: 1. No fracture. 2. Severe cervical spondylosis. 3. Lumbar levoscoliosis. Reviewed, dictated and finalized at location A.
[2023-02-21 11:45] VITALS: BP 144/78; PULSE 70; RESP 18; TEMP 36.2; O2SAT 100
[2023-02-21 11:55] LABS: Glucose Point of Care 141 mg/dl (65-105)
--- NOTE | 2023-02-21 12:21 | ED.GENADULT ---
HPI - General Adult General Chief complaint: Recheck/Abnormal Lab/Rx Stated complaint: low blood sugar Time Seen by Provider: 02/21/23 12:06 History of Present Illness HPI narrative: 79-year-old male past medical history of dementia diabetes presents to our department after having a fall this morning. When staff checked his blood sugar was in the 30s. EMS gave D10 in route and patient was euglycemic on arrival. No further history available upon arrival. Related Data Home Medications Medication Instructions Recorded Confirmed aspirin 81 mg tablet,delayed 81 mg PO DAILY 01/14/23 02/18/23 release atorvastatin 20 mg tablet 20 mg PO DAILY 01/14/23 02/18/23 cholecalciferol (vitamin D3) 50 50 mcg PO DAILY 01/14/23 02/18/23 mcg (2,000 unit) tablet clopidogrel 75 mg tablet 75 mg PO DAILY 01/14/23 02/18/23 donepezil 10 mg tablet 10 mg PO HS 01/14/23 02/18/23 fenofibrate nanocrystallized 145 145 mg PO DAILY 01/14/23 02/18/23 mg tablet finasteride 5 mg tablet 5 mg PO DAILY 01/14/23 02/18/23 guaifenesin 600 mg tablet, 600 mg PO BID 01/14/23 02/18/23 extended release 12 hr (Mucus Relief ER) insulin aspart U-100 100 unit/mL 3 unit subcut TIDWMEAL 01/14/23 02/18/23 (3 mL) subcutaneous pen (Novolog FlexPen U-100 Insulin aspart) insulin glargine 100 unit/mL (3 5 unit subcut DAILY 01/14/23 02/18/23 mL) subcutaneous pen (Basaglar KwikPen U-100 Insulin) lisinopril 5 mg tablet 5 mg PO DAILY 01/14/23 02/18/23 memantine 10 mg tablet 10 mg PO BID 01/14/23 02/18/23 metformin 500 mg tablet,extended 500 mg PO DAILY 01/14/23 02/18/23 release 24 hr metoprolol tartrate 25 mg tablet 25 mg PO BID 01/14/23 02/18/23 montelukast 10 mg tablet 10 mg PO HS 01/14/23 02/18/23 tamsulosin 0.4 mg capsule 0.4 mg PO HS 01/14/23 02/18/23 tolterodine 4 mg capsule,extended 4 mg PO DAILY 01/14/23 02/18/23 release 24 hr Allergies Allergy/AdvReac Type Severity Reaction Status Date / Time No Known Allergies Allergy Verified 02/14/23 12:49 Review of Systems Review of Systems: CONSTITUTIONAL: Denies fever, chills, or sweats. EYES: Denies visual changes, redness, or discharge. ENT: Denies rhinorrhea, congestion, sore throat, or otalgia. CARDIOVASCULAR: Denies chest pain, palpitations, or edema. RESPIRATORY: Denies cough or dyspnea. GASTROINTESTINAL: Denies abdominal pain, nausea, vomiting, or diarrhea. GENITOURINARY: Denies dysuria or hematuria. SKIN: Denies rash or itching. MUSCULOSKELETAL: Denies back pain, joint pain, or myalgia. NEUROLOGIC: Denies headache, numbness, or weakness. PSYCHIATRIC: Denies anxiety or depression. [facility] Past Medical History Medical History Atrial fibrillation Coronary artery disease Dementia Diabetes mellitus Hypercholesterolemia Hypertension Insulin dependent diabetes mellitus Lumbar radiculopathy Spinal stenosis Surgical History Surgical History History of aortic aneurysm repair Status post insertion of iliac artery stent Family History Family History Other Family history unknown Social History Social History Social History: Healthcare power of banking attorney: Lilliana Lu, daughter. Code status: Do not resuscitate. Smoking status: Never smoker Alcohol intake: never Substance use: never Other substance usage details: patient has history of dementia, difficult to obtain accurate information Additional living arrangements comments: Assisted living at [facility]. 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 Spiritual care concerns: No Exam Narrative: GENERAL: Well-appearing, well-nourished, and in no acute distress. HEAD: Normocephalic, atraumatic. EYES: PERRLA and EOMI. ENT: Nares clear, no rhinorrhea or epi
--- NOTE | 2023-02-21 12:26 | ECG_ITS ---
Measurements Intervals [place] Rate: 60 P: [place]: 0 QRS: -24 QRSD: 91 T: 24 QT: 388 QTc: 388 Interpretive Statements ATRIAL FIBRILLATION BASELINE ARTIFACT- I, II, III, AVR, AVF, V1, V4-V6 ABNORMAL ECG COMPARED TO ECG 01/14/2023 10:30:39 NO SIGNIFICANT CHANGES Electronically Signed On 02-21-2023 16:46:45 CDT by Jagdeep Sumner D.O.
[2023-02-21 12:47] LABS: Basophils Percent Auto 0.2 % (0.2-1.2); Eosinophils Absolute Auto 0.1 K/mm3 (0-0.3); Hematocrit 32.9 % (42.0-52.0); Immature Granulocyte Absolute 0.02 K/mm3 (0.00-0.031); Immature Granulocyte Percent A 0.4 % (0-0.5); Lymphocytes Absolute Auto 0.42 K/mm3 (0.9-3.2); Lymphocytes Percent Auto 8.4 % (18.3-44.2); Mean Corpuscular HGB Conc 33.4 g/dl (32-36); Mean Corpuscular Hemoglobin 32.6 pg (26-34); Mean Corpuscular Volume 97.6 fl (80-100); Mean Platelet Volume 10.5 fl (7.4-10.4); Monocytes Absolute Auto 0.4 K/mm3 (0.1-0.6); Neutrophils Absolute Auto 4.1 K/mm3 (1.3-6.7); Platelet Count Result 111 k/mm3 (150-375); Red Blood Count 3.37 M/mm3 (4.6-6.20); Red Cell Distribution Width 14.5 % (11.5-14.5)
[2023-02-21 12:52] LABS: Anion Gap 5 mmol/L (8-16); Blood Urea Nitrogen 23 mg/dL (9-20); Calcium 7.7 mg/dL (8.4-10.2); Carbon Dioxide 26 mmol/L (22-30); Chloride 104 mmol/L (98-107); Estimated CRCL calculation 57 ml/min; Estimated Glomerular Filt Rate > 60; Glucose 142 mg/dL (65-110); Potassium 3.4 mmol/L (3.4-5.0); Sodium 135 mmol/L (137-145)
[2023-02-21 12:56] LABS: Appearance Urine Clear (Clear); Bilirubin Urine 1+ (Negative); Blood Urine Negative (Negative); Color Urine Dark Yellow (Yellow); Glucose Urine UA Negative (Negative); Ketones Urine Trace mg/dL (Negative); Leukocyte Esterase Ur Negative LEU/UL (Negative); Nitrate Urine Negative (Negative); Protein Urine Negative (Negative)
[2023-02-21 13:04] LABS: Troponin I < 0.012 ng/mL (0.000-0.034)
[2023-02-21 13:11] LABS: Add Urine Microscopic? NO
[2023-02-21 14:58] LABS: Glucose Point of Care 86 mg/dl (65-105)
[2023-02-21 15:55] LABS: Glucose Point of Care 121 mg/dl (65-105)
[2023-02-21 17:06] VITALS: BP 121/64; PULSE 87; RESP 16; O2SAT 96
== END 2023-02-21 17:08 | disposition home or self-care (01) ==
PROVIDERS: Emergency Provider Emergency Medicine; PCP Internal Medicine
DX: E11.649 Type 2 diabetes mellitus with hypoglycemia without coma (principal); W19.XXXA Unspecified fall, initial encounter; F03.90 Unspecified dementia, unspecified severity, without behavioral disturbance, psychotic disturbance, mood disturbance, and anxiety; I48.91 Unspecified atrial fibrillation; I25.10 Atherosclerotic heart disease of native coronary artery without angina pectoris; I10 Essential (primary) hypertension; E78.00 Pure hypercholesterolemia, unspecified; Z79.82 Long term (current) use of aspirin; Z79.4 Long term (current) use of insulin; Z79.84 Long term (current) use of oral hypoglycemic drugs; Z95.820 Peripheral vascular angioplasty status with implants and grafts; Z79.02 Long term (current) use of antithrombotics/antiplatelets
CPT/HCPCS: 36415; 70450; 71045; 72125; 80048; 81003; 82948; 84484; 85025; 93005; 99284

== ENCOUNTER 2023-02-22 05:09 | Emergency (ER) | payer MEDICARE, SELFPAY ==
[2023-02-22] VITALS (13 sets, daily range): BP systolic 120–158; BP diastolic 45–83; PULSE 55–78; RESP 14–21; TEMP 36.4
--- NOTE | ~2023-02-22 | CT_ITS ---
EXAMINATION: CT brain wo con DATE: 02/22/2023 05:38 INDICATION: Head injury. TECHNIQUE: Computed tomography (CT) of the head was performed without intravenous contrast. The mA wa s adjusted according to patient size. Iterative reconstruction technique was employed. The dose-lengt h product was 681.00 mGy-cm. COMPARISON: Head CT 02/21/2023 FINDINGS: There are old infarcts in the left cerebellum and left occipital lobe. There are scattered areas of low attenuation in the cerebral white matter. There is no intracranial hemorrhage, acute inf arction, or abnormal intracranial mass lesion. There is ex vacuo dilatation of occipital horn of left lateral ventricle. There are likely changes of ocular lens replacement surgeries. There is mucosal t hickening in the paranasal sinuses. The mastoid air cells are normal. There is cerumen in the externa l auditory canals. IMPRESSION: 1. 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 2. Stable mild nonspecific cerebral white matter disease, which likely represents chronic small vesse l ischemic disease. Reviewed, dictated and finalized at location A. IMPRESSION: 1. 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 2. Stable mild nonspecific cerebral white matter disease, which likely represen ts chronic small vessel ischemic disease.
--- NOTE | ~2023-02-22 | CT_ITS ---
EXAMINATION: CT lumbar spine wo con DATE: 02/22/2023 05:42 INDICATION: Low back injury. Fall. TECHNIQUE: Computed tomography (CT) of the lumbar spine was performed without intravenous contrast. A utomated exposure control and iterative reconstruction technique were employed. The dose-length produ ct was 1245.20 mGy-cm. COMPARISON: CT abdomen and pelvis 02/14/2023 FINDINGS: There is a 6.6 cm fusiform aneurysm of infrarenal aorta. There is a stent graft in abdomina l aorta, common iliac arteries, and right external iliac artery. 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 There are embolization co ils in right internal iliac artery. There are gallstones in the gallbladder. There is 21 degrees dext roscoliosis of lumbar spine. There is 3 mm retrolisthesis of L2 on L3. There is mild chronic anterior wedging of T11 and T12 vertebral bodies. There is severely decreased disc height from L1-L2 through L5-S1 with endplate remodeling. The following disc levels are specifically discussed: L1-L2: The disc is bulging. There is severe bilateral facet joint osteoarthritis. There is mild right and moderate left neural foraminal stenosis. There is mild central canal stenosis. L2-L3: The disc is bulging. There is severe bilateral facet joint osteoarthritis. There is mild right and moderate left neural foraminal stenosis. There is mild central canal stenosis with posterior dec ompression. L3-L4: The disc is bulging. There is severe bilateral facet joint osteoarthritis. There is moderate b ilateral neural foraminal stenosis. There is mild central canal stenosis with posterior decompression . L4-L5: The disc is bulging. There is severe bilateral facet joint osteoarthritis. There is moderate b ilateral neural foraminal stenosis. There is mild central canal stenosis. L5-S1: The disc is bulging. There is severe bilateral facet joint osteoarthritis. There is moderate b ilateral neural foraminal stenosis. There is mild central canal stenosis. IMPRESSION: 1. No acute fracture. 2. Severe lumbar spondylosis. 3. Lumbar dextroscoliosis. 4. Stable 6.6 cm fusiform aneurysm of infrarenal aorta with stent graft. Reviewed, dictated and finalized at location A.
[2023-02-22 05:18] LABS: Glucose Point of Care 79 mg/dl (65-105)
--- NOTE | 2023-02-22 05:31 | ED.FALL ---
HPI - Fall General Chief Complaint: Fall Stated Complaint: FALL, LOW BG Time Seen by Provider: 02/22/23 05:12 History of Present Illness HPI Narrative: 87-year-old male with history of dementia that is ANO x1 at baseline presenting to the ED for evaluation after having a ground-level fall. Patient was seen in the ED earlier for ground-level fall and was discharged back to his care facility. Patient was at the nursing station and was left alone for a few minutes and when the nurse returned she found he had fallen. Patient states he does have chronic back pain and that his lower back pain was worsened after the fall. Patient denies any other pain or injury. Related Data Home Medications Medication Instructions Recorded Confirmed aspirin 81 mg tablet,delayed 81 mg PO DAILY 01/14/23 02/18/23 release atorvastatin 20 mg tablet 20 mg PO DAILY 01/14/23 02/18/23 cholecalciferol (vitamin D3) 50 50 mcg PO DAILY 01/14/23 02/18/23 mcg (2,000 unit) tablet clopidogrel 75 mg tablet 75 mg PO DAILY 01/14/23 02/18/23 donepezil 10 mg tablet 10 mg PO HS 01/14/23 02/18/23 fenofibrate nanocrystallized 145 145 mg PO DAILY 01/14/23 02/18/23 mg tablet finasteride 5 mg tablet 5 mg PO DAILY 01/14/23 02/18/23 guaifenesin 600 mg tablet, 600 mg PO BID 01/14/23 02/18/23 extended release 12 hr (Mucus Relief ER) insulin aspart U-100 100 unit/mL 3 unit subcut TIDWMEAL 01/14/23 02/18/23 (3 mL) subcutaneous pen (Novolog FlexPen U-100 Insulin aspart) insulin glargine 100 unit/mL (3 5 unit subcut DAILY 01/14/23 02/18/23 mL) subcutaneous pen (Basaglar KwikPen U-100 Insulin) lisinopril 5 mg tablet 5 mg PO DAILY 01/14/23 02/18/23 memantine 10 mg tablet 10 mg PO BID 01/14/23 02/18/23 metformin 500 mg tablet,extended 500 mg PO DAILY 01/14/23 02/18/23 release 24 hr metoprolol tartrate 25 mg tablet 25 mg PO BID 01/14/23 02/18/23 montelukast 10 mg tablet 10 mg PO HS 01/14/23 02/18/23 tamsulosin 0.4 mg capsule 0.4 mg PO HS 01/14/23 02/18/23 tolterodine 4 mg capsule,extended 4 mg PO DAILY 01/14/23 02/18/23 release 24 hr Allergies Allergy/AdvReac Type Severity Reaction Status Date / Time No Known Allergies Allergy Verified 02/14/23 12:49 Review of Systems Review of Systems: All systems reviewed & are unremarkable except as noted in HPI and below PMFSH Past Medical History Medical History Atrial fibrillation Coronary artery disease Dementia Diabetes mellitus Hypercholesterolemia Hypertension Insulin dependent diabetes mellitus Lumbar radiculopathy Spinal stenosis Surgical History Surgical History History of aortic aneurysm repair Status post insertion of iliac artery stent Family History Family History Other Family history unknown Social History Social History Social History: Healthcare power of export freight clerk: Lilliana Lu, daughter. Code status: Do not resuscitate. Smoking status: Never smoker Alcohol intake: never Substance use: never Other substance usage details: patient has history of dementia, difficult to obtain accurate information Additional living arrangements comments: Assisted living at [facility]. 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 Spiritual care concerns: No Exam Narrative: APPEARANCE: Well appearing, no pain, no distress, well-nourished. HEAD: normocephalic, some abrasions to the scalp. EYES: PERRLA/EOMI, conjunctivae clear. NOSE: Normal no drainage NECK: Supple. No adenopathy, no masses. No midline neck tenderness RESPIRATORY: Airway patent, respirations nonlabored. Clear to auscultation bilaterally, no rales, rhonchi, wheezing. CARDIOVASCULAR: Regular rate and rhythm without murmurs rubs or gallops. ABDOMINAL:
[2023-02-22 06:44] LABS: Glucose Point of Care 159 mg/dl (65-105)
--- NOTE | 2023-02-22 06:52 | PC.NURSE ---
Dairy Science Teacher called patient report to YANIRA Charles at [facility]. All questions answered at this time. Patient awaiting transport back to the facility.
--- NOTE | 2023-02-22 08:25 | PC.NURSE ---
Sleeping. [facility].
== END 2023-02-22 08:48 ==
PROVIDERS: Emergency Provider Emergency Medicine; PCP Internal Medicine
DX: S09.90XA Unspecified injury of head, initial encounter (principal); M54.50 Low back pain, unspecified; W18.30XA Fall on same level, unspecified, initial encounter; Z91.81 History of falling; I48.91 Unspecified atrial fibrillation; I25.10 Atherosclerotic heart disease of native coronary artery without angina pectoris; F03.90 Unspecified dementia, unspecified severity, without behavioral disturbance, psychotic disturbance, mood disturbance, and anxiety; E11.9 Type 2 diabetes mellitus without complications; I10 Essential (primary) hypertension; E78.00 Pure hypercholesterolemia, unspecified; Z95.820 Peripheral vascular angioplasty status with implants and grafts; Z79.82 Long term (current) use of aspirin; Z79.4 Long term (current) use of insulin; Z79.84 Long term (current) use of oral hypoglycemic drugs
CPT/HCPCS: 70450; 72131; 82948; 99284